=== PATIENT | male | born 1955 | race Caucasian/White ===

== ENCOUNTER 2017-01-15 11:22 | Observation (INO) | payer BC, OTHER ==
[2017-01-15] MEDS ORDERED: Ondansetron 4 MG/2 ML SDV IVPUSH ONE ×2 (11:30→11:48)
[2017-01-15] MEDS ORDERED: Sodium Chloride 0.9% 1,000 ML IV ONE (11:30)
[2017-01-15] MEDS ORDERED: LORazepam 2 MG/ML MDV IVPUSH ONE (11:32)
--- NOTE | 2017-01-15 11:34 | EDM.PDOC ---
ED HPI GENERAL MEDICAL PROBLEM - General Chief Complaint: General Stated Complaint: UNK Time Seen by Provider: 01/15/17 11:25 Source of Information: Reports: Patient, EMS, Family - History of Present Illness INITIAL COMMENTS - FREE TEXT/NARRATIVE: HISTORY AND PHYSICAL: History of present illness: [Patient is brought to the emergency room by EMS who was called to the home by the patient's . She reports that he experienced a syncopal episode. he is vomiting on presentation to the emergency room but he is answering questions and is awake and alert. He states that he developed a migraine headache while sitting in [employer] this morning which is not uncommon for him. He feels that the lights in the orthodox precipitate a migraine headache. He was home sitting at the breakfast table with his after orthodox and he stated that he was not feeling well. The patient tried to stand up but got very dizzy. His tried to help him sit down but they both fell to the floor. reports seizure-like activity while patient was sitting in his chair and saying non-logical words. She denies postictal like symptoms. She states the patient passed out for about one minute.] Review of systems: As per history of present illness and below otherwise all systems reviewed and negative. Past medical history: As per history of present illness and as reviewed below otherwise noncontributory. Surgical history: As per history of present illness and as reviewed below otherwise noncontributory. Social history: No reported history of drug or alcohol abuse. Family history: As per history of present illness and as reviewed below otherwise noncontributory. Physical exam: HEENT: Atraumatic, normocephalic. PERRLA. mucous membranes moist, throat clear, neck supple, nontender, trachea midline. Lungs: Clear to auscultation, breath sounds equal bilaterally, chest nontender. Heart: S1S2, regular rate and rhythm, negative for clicks, rubs, or JVD. Abdomen: Soft, nondistended, nontender. Normoactive bowel sounds Genitourinary: Deferred. Rectal: Deferred. Extremities: Atraumatic, no cyanosis to feet or lower legs. Neurovascular unremarkable. Neuro: Awake, alert, oriented. Cranial nerves II through XII unremarkable. Cerebellum unremarkable. Motor and sensory unremarkable throughout. Exam nonfocal. Diagnostics: [CBC, CMP, prolactin, UA, EKG, chest x-ray, head CT, troponin] Therapeutics: [Zofran 4 mg IV x2, Keppra 1000 mg IV] Impression: [Syncopal episode] Plan: [Patient is much more comfortable and is no longer vomiting after 2 doses of Zofran. Patient's condition remains unchanged while in the ER. Prolactin is elevated at 63. Chest x-ray, EKG and head CT showed no abnormalities or acute findings. Patient's symptoms and lab findings are discussed with Dr. Severino who agrees with admission for observation. Will be placed on telemetry. She requests Keppra 1000 mg be given IV transferred to [facility]. This is discussed with patient and his who are in agreement with today's plan. Patient requesting comfortably on exam table.] Definitive disposition and diagnosis as appropriate pending reevaluation and review of above. Headache Pain Score (Numeric/FACES): 1 - Related Data Allergies Allergy/AdvReac Type Severity Reaction Status Date / Time No Known Allergies Allergy Verified 01/15/17 11:25 Home Meds: Home Meds . [No Known Home Meds] 11/18/15 [History] Past Medical History HEENT History: Reports: Impaired vision Cardiovascular History: Reports: Afib Respiratory History: Reports: None Gastrointestinal History: Reports: None Genitourinary History: Reports: None Musculoskeletal History: Reports: Fracture Neurological History: Reports: Migraines, Vertigo, Other (see below) Other Neuro History: Occular Migraines Psychiatric History: Reports: None Endocrine/Metabolic History: Reports: None Hematologic History: Reports: Other (see below) Other Hematologic History: Previous anticoagulation therapy for history of A- Fib. Immunologic History: Reports: None Oncologic (Cancer) History: Reports: None Dermatologic History: Reports: None - Infectious Disease History Infectious Disease History: Reports: Chicken pox - Past Surgical History HEENT Surgical History: Reports: Oral surgery, Tonsillectomy Social & Family History - Tobacco Use Smoking Status *Q: Never Smoker - Recreational Drug Use Recreational Drug Use: No ED ROS GENERAL - Review of Systems Review Of Systems: ROS reveals no pertinent complaints other than HPI. ED EXAM, GENERAL - Physical Exam Exam: See Below Course - Vital Signs Last Recorded V/S: Last Vital Signs Temp 96.7 F 01/15/17 11:25 Pulse 83 01/15/17 11:25 Resp 20 01/15/17 11:25 BP 137/71 01/15/17 11:25 Pulse Ox 98 01/15/17 11:25 - Orders/Labs/Meds Orders: Active Orders 24 hr Category Date Time Status Patient Status Manage Transfer [TRANSFER] Routine ADT 01/15/17 13:11 Active Patient Status [ADT] Routine ADT 01/15/17 13:13 Active Antiembolic Devices [RC] PER UNIT ROUTINE Care 01/15/17 13:15 Active EKG Documentation Completion [RC] STAT Care 01/15/17 11:30 Active Neuro Check [RC] Q2HR Care 01/15/17 13:18 Active Oxygen Therapy [RC] PRN Care 01/15/17 13:13 Active RT Aerosol Therapy [RC] ASDIRECTED Care 01/15/17 13:15 Active Telemetry Monitoring [Cardiac Monitoring] [RC] . Care 01/15/17 13:21 Active DIRECTED Up ad Alicia [RC] ASDIRECTED Care 01/15/17 13:12 Active VTE/DVT Education [RC] PER UNIT ROUTINE Care 01/15/17 13:13 Active Vital Signs [RC] Q4H Care 01/15/17 13:13 Active 2 Gram Sodium Diet [DIET] Diet 01/15/17 Lunch Active Chest 2V [CR] Stat Exams 01/15/17 11:30 Taken Head wo Cont [CT] Stat Exams 01/15/17 11:44 Taken BASIC METABOLIC PANEL,BMP [CHEM] AM Lab 01/16/17 05:11 Ordered BASIC METABOLIC PANEL,BMP [CHEM] AM Lab 01/17/17 05:11 Ordered BASIC METABOLIC PANEL,BMP [CHEM] AM Lab 01/18/17 05:11 Ordered BASIC METABOLIC PANEL,BMP [CHEM] AM Lab 01/19/17 05:11 Ordered CBC WITH AUTO DIFF [HEME] AM Lab 01/16/17 05:11 Ordered CBC WITH AUTO DIFF [HEME] AM Lab 01/17/17 05:11 Ordered CBC WITH AUTO DIFF [HEME] AM Lab 01/18/17 05:11 Ordered UA W/MICROSCOPIC [URIN] Stat Lab 01/15/17 11:30 Uncollected Albuterol [Proventil Neb Soln] Med 01/15/17 13:12 Active 2.5 mg NEB Q2H PRN Enoxaparin [Lovenox] Med 01/16/17 09:00 Active 40 mg SUBCUT DAILY levETIRAcetam [Keppra] 1,000 mg Med 01/15/17 13:20 Active Dextrose 5% in Water 100 ml IV ONETIME Seizure Precautions [OM.PC] Stat Oth 01/15/17 13:19 Ordered Sequential Compression Device [OM.PC] Per Unit Routine Oth 01/15/17 13:14 Ordered Resuscitation Status Routine Resus Stat 01/15/17 13:12 Ordered Medication Orders Albuterol (Proventil Neb Soln) 2.5 mg NEB Q2H PRN PRN Reason: Shortness Of Breath/wheezing Enoxaparin Sodium (Lovenox) 40 mg SUBCUT DAILY SEGUN Levetiracetam 1,000 mg/ (Dextrose/Water) 110 mls @ 440 mls/hr IV ONETIME ONE Stop: 01/15/17 13:34 Labs: Laboratory Tests 01/15/17 01/15/17 01/15/17 Range/Units 11:40 11:40 11:40 WBC 6.93 (4.0-11.0) K/uL RBC 5.06 (4.50-5.90) M/uL Hgb 15.6 (13.0-17.0) g/dL Hct 43.8 (38.0-50.0) % MCV 86.6 (80.0-98.0) fL MCH 30.8 (27.0-32.0) pg MCHC 35.6 (31.0-37.0) g/dL RDW Std Deviation 41.5 (28.0-62.0) fl RDW Coeff of Haritha 13 (11.0-15.0) % Plt Count 208 (150-400) K/uL MPV 9.70 (7.40-12.00) fL Neut % (Auto) 48.2 (48.0-80.0) % Lymph % (Auto) 40.8 H (16.0-40.0) % Giles % (Auto) 7.9 (0.0-15.0) % Eos % (Auto) 2.5 (0.0-7.0) % Baso % (Auto) 0.6 (0.0-1.5) % Neut # 3.3 (1.4-5.7) K/uL Lymph # 2.8 H (0.6-2.4) K/uL Giles # 0.6 (0.0-0.8) K/uL Eos # 0.2 (0.0-0.7) K/uL Baso # 0.0 (0.0-0.1) K/uL Nucleated RBC % 0.0 /100WBC Nucleated RBCs # 0 K/uL INR 1.12 H (0.86-1.11) Sodium 140 (136-146) mmol/L Potassium 3.8 (3.5-5.1) mmol/L Chloride 107 (98-110) mmol/L Carbon Dioxide 18 L (21-31) mmol/L BUN 16 (6.0-23.0) mg/dL Creatinine 1.2 (0.6-1.5) mg/dL Est Cr Clr Drug Dosing 72.29 mL/min Estimated GFR (MDRD) > 60.0 ml/min Glucose 129 H (60-110) mg/dL Calcium 9.6 (8.8-10.8) mg/dL Total Bilirubin 1.0 (0.1-1.5) mg/dL AST 18 (5-40) IU/L ALT 17 (8-54) IU/L Alkaline Phosphatase 39 L (40-150) Troponin I (0.0-0.29) NG/ML Total Protein 7.3 (6.0-8.0) g/dL Albumin 4.2 (3.5-5.0) g/dL Globulin 3.1 (2.0-3.5) g/dL Albumin/Globulin Ratio 1.4 (1.3-2.8) Prolactin 63 H (1-23) ng/mL 01/15/17 Range/Units 11:40 WBC (4.0-11.0) K/uL RBC (4.50-5.90) M/uL Hgb (13.0-17.0) g/dL Hct (38.0-50.0) % MCV (80.0-98.0) fL MCH (27.0-32.0) pg MCHC (31.0-37.0) g/dL RDW Std Deviation (28.0-62.0) fl RDW Coeff of Haritha (11.0-15.0) % Plt Count (150-400) K/uL MPV (7.40-12.00) fL Neut % (Auto) (48.0-80.0) % Lymph % (Auto) (16.0-40.0) % Giles % (Auto) (0.0-15.0) % Eos % (Auto) (0.0-7.0) % Baso % (Auto) (0.0-1.5) % Neut # (1.4-5.7) K/uL Lymph # (0.6-2.4) K/uL Giles # (0.0-0.8) K/uL Eos # (0.0-0.7) K/uL Baso # (0.0-0.1) K/uL Nucleated RBC % /100WBC Nucleated RBCs # K/uL INR (0.86-1.11) Sodium (136-146) mmol/L Potassium (3.5-5.1) mmol/L Chloride (98-110) mmol/L Carbon Dioxide (21-31) mmol/L BUN (6.0-23.0) mg/dL Creatinine (0.6-1.5) mg/dL Est Cr Clr Drug Dosing mL/min Estimated GFR (MDRD) ml/min Glucose (60-110) mg/dL Calcium (8.8-10.8) mg/dL Total Bilirubin (0.1-1.5) mg/dL AST (5-40) IU/L ALT (8-54) IU/L Alkaline Phosphatase (40-150) Troponin I < 0.10 (0.0-0.29) NG/ML Total Protein (6.0-8.0) g/dL Albumin (3.5-5.0) g/dL Globulin (2.0-3.5) g/dL Albumin/Globulin Ratio (1.3-2.8) Prolactin (1-23) ng/mL Meds: Medications Generic Name Dose Route Start Last Admin Trade Name Freq PRN Reason Stop Dose Admin Albuterol 2.5 mg 01/15/17 13:12 Proventil Neb Soln NEB Q2H PRN Shortness Of Breath/wheezing Enoxaparin Sodium 40 mg 01/16/17 09:00 Lovenox SUBCUT DAILY SEGUN Levetiracetam 1,000 mg/ 110 mls @ 440 mls/hr 01/15/17 13:20 Dextrose/Water IV 01/15/17 13:34 ONETIME ONE Discontinued Medications Generic Name Dose Route Start Last Admin Trade Name Calvin PRN Reason Stop Dose Admin Sodium Chloride 1,000 mls @ 999 mls/hr 01/15/17 11:30 01/15/17 11:22 Normal Saline IV 01/15/17 12:30 999 mls/hr STAT ONE Administration Lorazepam 1 mg 01/15/17 11:32 01/15/17 11:54 Ativan IVPUSH 01/15/17 11:33 1 mg ONETIME ONE Administration Ondansetron HCl 4 mg 01/15/17 11:30 01/15/17 11:30 Zofran IVPUSH 01/15/17 11:31 4 mg ONETIME ONE Administration Ondansetron HCl 4 mg 01/15/17 11:48 01/15/17 11:52 Zofran IVPUSH 01/15/17 11:49 4 mg ONETIME ONE Administration Departure - Departure Time of Disposition: 13:30 Disposition: Refer to Observation Condition: good Clinical Impression: Syncope Qualifiers: Syncope type: unspecified Qualified Code(s): R55 - Syncope and collapse Forms: ED Department Discharge - My Orders Last 24 Hours: My Active Orders 01/15/17 11:30 EKG Documentation Completion [RC] STAT Chest 2V [CR] Stat UA W/MICROSCOPIC [URIN] Stat 01/15/17 11:44 Head wo Cont [CT] Stat 01/15/17 13:11 Patient Status Manage Transfer [TRANSFER] Routine 01/15/17 13:20 levETIRAcetam [Keppra] 1,000 mg Dextrose 5% in Water 100 ml IV ONETIME - Assessment/Plan Last 24 Hours: My Active Orders 01/15/17 11:30 EKG Documentation Completion [RC] STAT Chest 2V [CR] Stat UA W/MICROSCOPIC [URIN] Stat 01/15/17 11:44 Head wo Cont [CT] Stat 01/15/17 13:11 Patient Status Manage Transfer [TRANSFER] Routine 01/15/17 13:20 levETIRAcetam [Keppra] 1,000 mg Dextrose 5% in Water 100 ml IV ONETIME
[2017-01-15 12:08] LABS: CHLORIDE,CL 107 mmol/L (98-110); SODIUM,NA 140 mmol/L (136-146)
[2017-01-15] MEDS ORDERED: Albuterol 0.083% 2.5 MG/3 ML Neb Soln NEB PRN (13:12)
--- NOTE | 2017-01-15 18:02 | PCM.SN ---
- Free Text/Narrative Note: [id number]
[2017-01-15] MEDS: levETIRAcetam 500 MG Tab PO SCH (20:39)
[2017-01-16 06:36] LABS: CHLORIDE,CL 109 mmol/L (98-110); SODIUM,NA 139 mmol/L (136-146)
[2017-01-16] MEDS ORDERED: LORazepam 2 MG/ML MDV IVPUSH PRN (07:40)
--- NOTE | 2017-01-16 07:45 | HP ---
DATE OF : 1955 PRIMARY CARE PHYSICIAN: None PCP HISTORY OF PRESENT ILLNESS: The patient is a 61-year-old, who presented to the emergency room because he was outside the restaurant and he was sitting at [place] with his and he rolled his eyes and he started having seizure-like jerky movements, seizure-like activity for about 2 minutes, LOC, and his held him and laid him on the floor. Prior to this, 1 hour before, he was in [employer] and he had flashing lights in his visual field, and also when I discussed with the patient, he reported aura prior to seizures. He did not have any history of seizures. He has history of migraine headache with aura, and his first migraine was last year in October he says. PAST MEDICAL HISTORY: He has migraine headache, atrial fibrillation, and history of back pain. ALLERGIES: None. PAST SURGICAL HISTORY: He had appendicectomy. SOCIAL HISTORY: He does not smoke. No alcohol use. No drug use. FAMILY HISTORY: Father had rectal cancer at the age of 60 and both parents have Alzheimer disease. REVIEW OF SYSTEMS: A 12-point review of systems is negative except as in history of present illness. PHYSICAL EXAMINATION: VITAL SIGNS: At admission, temperature 96.7, pulse rate 83, blood pressure 137/71, respiratory rate 20, and pulse oximetry 98%. Head : atraumatic , normocephalic , PERRLA NECK :supple , no thyromegaly , no Lymphadenopathy HEART: S1 , S2 , RR , no M Abd : soft ,NT , ND , positive BS EXT: no edema Neurol: AOtimes 3 no gross focal neurologic def CN2-12 grossly intact MS 5/5 throughout Sensations intact finger -nose normal LABORATORY DATA: At admission, WBC 6.9, hemoglobin 15.6, hematocrit 43.9, and platelet count 208. INR 1.12. Sodium 140, potassium 3.8, chloride 107, CO2 of 18, BUN 16, creatinine 1.2, GFR more than 60, glucose 129, and calcium 9.6. Total bilirubin 1, AST 18, ALT 17, alkaline phosphatase 39, total protein 7.3, albumin 4.2, and globulin 3.1. Prolactin 63. Urinalysis had trace ketones, otherwise was negative. CT of the head was done in the emergency room and showed the ventricular system is normal size, there is no mass effect or midline shift, there are no areas of acute ischemia within the brain, there is no hemorrhage, there is no extra-axial fluid collection, and the calvarium is intact. EKG done in the emergency room showed sinus, rate of 63, probable left atrial enlargement, be more than 50 milliseconds, nonspecific intraventricular conduction delay, QRS more than 117 millivolts, no left bundle-branch block, no right bundle-branch block, WA interval 163, QRS 121, QT 426, and QTc 437. ASSESSMENT AND PLAN: New onset [place] seizure. The patient received in the emergency room loading dose of Keppra 1000 mg IV. We will continue the patient with Keppra 500 mg p.o. q.12 hours, and we request Neurology consult tomorrow, and we will order neuro check q.2 hours. We will admit the patient to telemetry, and if the patient has seizure activity we will recommend Ativan 2 mg IV p.r.n. for seizure disorder. For deep venous thrombosis prophylaxis, we will put the patient on heparin subcutaneous. ANTOPET / MODL /[id number]
[2017-01-16] MEDS ORDERED: Enoxaparin 40 MG/0.4 ML Syringe SUBCUT SCH (09:00)
[2017-01-16] MEDS: levETIRAcetam 500 MG Tab PO SCH (09:20)
--- NOTE | 2017-01-16 11:48 | PCM.DCSUM1 ---
<Adenike Reina - Last Filed: 01/16/17 16:22> Discharge Summary - Hospital Course Free Text/Narrative:: 61 yo past medical history of migraines with aura admitted for seizures. Yesterday he was at [employer] and felt he had a migrane, lightheaded, flashes of lights. He sat down and felt better. [facility] his noticed seizure like activity jerky movements, loc x 2 minutes. In the ED he recieved Keppra loading dose. Head CT was negative. He was admitted with continuous telemetry and started on keppra 500 mg PO bid. Echocardiogram and carotid us done today. Dr. coon (neurology) was consulted. She does not feel that this is seizure but a presyncopal episode. She recommended to discontinue keppra, obtain outpatient EEG, Head MRI with and without contrast. He is f/u with PCP, cardiology and neurology. - Discharge Data Discharge Date: 01/16/17 Discharge Disposition: Home, Self-Care 01 Condition: Good - Patient Summary/Data Consults: Consultations 01/16/17 10:41 Consult to Physician [CONS] Routine - Patient Instructions Diet: Regular Diet as Tolerated Activity: As Tolerated Driving: Do Not Drive Showering/Bathing: May Shower Notify Provider of: Fever, Increased Pain, Swelling and Redness, Drainage, Nausea and/or Vomiting Other/Special Instructions: please follow up with Dr. Coon - Discharge Plan Patient Handouts: Syncope, [id number] Referrals: Altaf Hadley MD [Physician] - 02/06/17 9:00 am Clarita Coon MD [Physician] - - General Info Date of Service: 01/16/17 Functional Status: Reports: tolerating diet, ambulating, urinating - Review of Systems General: Reports: no symptoms HEENT: Reports: no symptoms Pulmonary: Reports: no symptoms Cardiovascular: Reports: no symptoms Gastrointestinal: Reports: No symptoms Genitourinary: Reports: no symptoms Musculoskeletal: Reports: no symptoms Skin: Reports: no symptoms Neurological: Reports: no symptoms Psychiatric: Reports: no symptoms - Patient Data Vitals - Most Recent: Last Vital Signs Temp 98.0 F 01/16/17 08:00 Pulse 60 01/16/17 08:00 Resp 16 01/16/17 08:00 BP 112/75 01/16/17 08:00 Pulse Ox 96 01/16/17 08:00 Weight - Most Recent: 172 lb 6.424 oz I&O - Last 24 hours: Intake & Output 01/15/17 01/16/17 01/16/17 22:59 06:59 14:59 Intake Total 0 650 Output Total 0 1700 Balance 0 -1050 Lab Results - Last 24 hrs: Laboratory Results - last 24 hr 01/15/17 01/16/17 01/16/17 Range/Units 17:20 05:53 05:53 WBC 6.65 (4.0-11.0) K/uL RBC 4.80 (4.50-5.90) M/uL Hgb 14.4 (13.0-17.0) g/dL Hct 42.4 (38.0-50.0) % MCV 88.3 (80.0-98.0) fL MCH 30.0 (27.0-32.0) pg MCHC 34.0 (31.0-37.0) g/dL RDW Std Deviation 43.4 (28.0-62.0) fl RDW Coeff of Haritha 13 (11.0-15.0) % Plt Count 194 (150-400) K/uL MPV 9.70 (7.40-12.00) fL Neut % (Auto) 65.8 (48.0-80.0) % Lymph % (Auto) 27.8 (16.0-40.0) % [place] % (Auto) 4.4 (0.0-15.0) % Eos % (Auto) 1.7 (0.0-7.0) % Baso % (Auto) 0.3 (0.0-1.5) % Neut # 4.4 (1.4-5.7) K/uL Lymph # 1.9 (0.6-2.4) K/uL [place] # 0.3 (0.0-0.8) K/uL Eos # 0.1 (0.0-0.7) K/uL Baso # 0.0 (0.0-0.1) K/uL Nucleated RBC % 0.0 /100WBC Nucleated RBCs # 0 K/uL Sodium 139 (136-146) mmol/L Potassium 3.8 (3.5-5.1) mmol/L Chloride 109 (98-110) mmol/L Carbon Dioxide 22 (21-31) mmol/L BUN 11 (6.0-23.0) mg/dL Creatinine 1.0 (0.6-1.5) mg/dL Est Cr Clr Drug Dosing 87.30 mL/min Estimated GFR (MDRD) > 60.0 ml/min Glucose 85 (60-110) mg/dL Calcium 8.8 (8.8-10.8) mg/dL Urine Color YELLOW Urine Appearance CLEAR Urine pH 7.0 (5.0-8.0) Ur Specific [place] 1.020 (1.001-1.035) Urine Protein NEGATIVE (NEGATIVE) mg/dL Urine Glucose (UA) NEGATIVE (NEGATIVE) mg/dL Urine Ketones TRACE H (NEGATIVE) mg/dL Urine Occult Blood NEGATIVE (NEGATIVE) Urine Nitrite NEGATIVE (NEGATIVE) Urine Bilirubin NEGATIVE (NEGATIVE) Urine Urobilinogen 0.2 (<2.0) EU/dL Ur Leukocyte Esterase NEGATIVE (NEGATIVE) Urine RBC 0-1 (0-2/HPF) Urine WBC 0-2 (0-5/HPF) Ur Epithelial Cells RARE (NONE-FEW) Urine Bacteria RARE (NEGATIVE) Urine Mucus LIGHT (NONE-MOD) Med Orders - Current: Current Medications Albuterol (Proventil Neb Soln) 2.5 mg NEB Q2H PRN PRN Reason: Shortness Of Breath/wheezing Enoxaparin Sodium (Lovenox) 40 mg SUBCUT DAILY [facility] Last Admin: 01/16/17 09:20 Dose: 40 mg Levetiracetam (Keppra) 500 mg PO BID [facility] Last Admin: 01/16/17 09:20 Dose: 500 mg Lorazepam (Ativan) 2 mg IVPUSH ASDIRECTED PRN PRN Reason: Seizures Discontinued Medications Sodium Chloride (Normal Saline) 1,000 mls @ 999 mls/hr IV STAT ONE Stop: 01/15/17 12:30 Last Admin: 01/15/17 11:22 Dose: 999 mls/hr Levetiracetam 1,000 mg/ (Dextrose/Water) 110 mls @ 440 mls/hr IV ONETIME ONE Stop: 01/15/17 13:34 Last Admin: 01/15/17 13:30 Dose: 440 mls/hr Lorazepam (Ativan) 1 mg IVPUSH ONETIME ONE Stop: 01/15/17 11:33 Last Admin: 01/15/17 11:54 Dose: 1 mg Ondansetron HCl (Zofran) 4 mg IVPUSH ONETIME ONE Stop: 01/15/17 11:31 Last Admin: 01/15/17 11:30 Dose: 4 mg Ondansetron HCl (Zofran) 4 mg IVPUSH ONETIME ONE Stop: 01/15/17 11:49 Last Admin: 01/15/17 11:52 Dose: 4 mg - Exam General: Reports: alert, oriented, cooperative HEENT: Reports: Pupils equal, EOMI Neck: Reports: supple, trachea midline Lungs: Reports: Clear to auscultation, Normal respiratory effort Cardiovascular: Reports: regular rate, regular rhythm Abdomen: Reports: bowel sounds present, soft, no tenderness, no distension Back Exam: Reports: normal inspection, full range of motion Extremities: Reports: no edema *Q Meaningful Use (DIS) - VTE *Q VTE Criteria *Q: - Stroke *Q Stroke Criteria *Q: - AMI *Q AMI Criteria *Q: <Shakira Severino - Last Filed: 01/16/17 17:20> Discharge Summary - Hospital Course Free Text/Narrative:: Patient was seen and examined and was discussed with resident .I did not discussed with Neurologist , resident discussed with her. Agree with discharge summary with the following corrections: Diagnosis at discharge is LOC DD seizure vs syncope, as seizure is still not ruled out and patient is to have EEG and MRI Discussed this with resident. 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 Patient to f/up Echo results and the carotid doppler with cardiology. Will call patient if abnormal results. - Discharge Diagnosis/Problem(s) (1) Loss of consciousness SNOMED Code(s): 806203640, 800478814 ICD Code: R40.20 - UNSPECIFIED COMA Status: Acute - Patient Summary/Data Consults: Consultations 01/16/17 10:41 Consult to Physician [CONS] Routine - Patient Data Vitals - Most Recent: Last Vital Signs Temp 97.8 F 01/16/17 11:50 Pulse 65 01/16/17 11:50 Resp 16 01/16/17 11:50 BP 119/75 01/16/17 11:50 Pulse Ox 96 01/16/17 11:50 Orthostatic Blood Pressure [ 124/82 Standing] Orthostatic Blood Pressure [ 113/77 Sitting] Orthostatic Blood Pressure [ 114/71 Supine] I&O - Last 24 hours: Intake & Output 01/16/17 01/16/17 01/16/17 06:59 14:59 22:59 Intake Total 650 Output Total 1700 Balance -1050 Lab Results - Last 24 hrs: Laboratory Results - last 24 hr 01/15/17 01/16/17 01/16/17 Range/Units 17:20 05:53 05:53 WBC 6.65 (4.0-11.0) K/uL RBC 4.80 (4.50-5.90) M/uL Hgb 14.4 (13.0-17.0) g/dL Hct 42.4 (38.0-50.0) % MCV 88.3 (80.0-98.0) fL MCH 30.0 (27.0-32.0) pg MCHC 34.0 (31.0-37.0) g/dL RDW Std Deviation 43.4 (28.0-62.0) fl RDW Coeff of Haritha 13 (11.0-15.0) % Plt Count 194 (150-400) K/uL MPV 9.70 (7.40-12.00) fL Neut % (Auto) 65.8 (48.0-80.0) % Lymph % (Auto) 27.8 (16.0-40.0) % [place]ary % (Auto) 4.4 (0.0-15.0) % Eos % (Auto) 1.7 (0.0-7.0) % Baso % (Auto) 0.3 (0.0-1.5) % Neut # 4.4 (1.4-5.7) K/uL Lymph # 1.9 (0.6-2.4) K/uL [place]ary # 0.3 (0.0-0.8) K/uL Eos # 0.1 (0.0-0.7) K/uL Baso # 0.0 (0.0-0.1) K/uL Nucleated RBC % 0.0 /100WBC Nucleated RBCs # 0 K/uL Sodium 139 (136-146) mmol/L Potassium 3.8 (3.5-5.1) mmol/L Chloride 109 (98-110) mmol/L Carbon Dioxide 22 (21-31) mmol/L BUN 11 (6.0-23.0) mg/dL Creatinine 1.0 (0.6-1.5) mg/dL Est Cr Clr Drug Dosing 87.30 mL/min Estimated GFR (MDRD) > 60.0 ml/min Glucose 85 (60-110) mg/dL Calcium 8.8 (8.8-10.8) mg/dL Urine Color YELLOW Urine Appearance CLEAR Urine pH 7.0 (5.0-8.0) Ur Specific [place] 1.020 (1.001-1.035) Urine Protein NEGATIVE (NEGATIVE) mg/dL Urine Glucose (UA) NEGATIVE (NEGATIVE) mg/dL Urine Ketones TRACE H (NEGATIVE) mg/dL Urine Occult Blood NEGATIVE (NEGATIVE) Urine Nitrite NEGATIVE (NEGATIVE) Urine Bilirubin NEGATIVE (NEGATIVE) Urine Urobilinogen 0.2 (<2.0) EU/dL Ur Leukocyte Esterase NEGATIVE (NEGATIVE) Urine RBC 0-1 (0-2/HPF) Urine WBC 0-2 (0-5/HPF) Ur Epithelial Cells RARE (NONE-FEW) Urine Bacteria RARE (NEGATIVE) Urine Mucus LIGHT (NONE-MOD) Med Orders - Current: Current Medications Discontinued Medications Albuterol (Proventil Neb Soln) 2.5 mg NEB Q2H PRN PRN Reason: Shortness Of Breath/wheezing Enoxaparin Sodium (Lovenox) 40 mg SUBCUT DAILY [facility] Last Admin: 01/16/17 09:20 Dose: 40 mg Sodium Chloride (Normal Saline) 1,000 mls @ 999 mls/hr IV STAT ONE Stop: 01/15/17 12:30 Last Admin: 01/15/17 11:22 Dose: 999 mls/hr Levetiracetam 1,000 mg/ (Dextrose/Water) 110 mls @ 440 mls/hr IV ONETIME ONE Stop: 01/15/17 13:34 Last Admin: 01/15/17 13:30 Dose: 440 mls/hr Levetiracetam (Keppra) 500 mg PO BID [facility] Last Admin: 01/16/17 09:20 Dose: 500 mg Lorazepam (Ativan) 1 mg IVPUSH ONETIME ONE Stop: 01/15/17 11:33 Last Admin: 01/15/17 11:54 Dose: 1 mg Lorazepam (Ativan) 2 mg IVPUSH ASDIRECTED PRN PRN Reason: Seizures Ondansetron HCl (Zofran) 4 mg IVPUSH ONETIME ONE Stop: 01/15/17 11:31 Last Admin: 01/15/17 11:30 Dose: 4 mg Ondansetron HCl (Zofran) 4 mg IVPUSH ONETIME ONE Stop: 01/15/17 11:49 Last Admin: 01/15/17 11:52 Dose: 4 mg *Q Meaningful Use (DIS) - VTE *Q VTE Criteria *Q: - Stroke *Q Stroke Criteria *Q: - AMI *Q AMI Criteria *Q:
[2017-01-16 11:52] VITALS: BP 119/75
--- NOTE | 2017-01-16 13:43 | PCM.CONS ---
H&P History of Present Illness - General Date of Service: 01/16/17 - History of Present Illness Initial Comments - Free Text/Narative: This is 61 year-old man with a history of migraines, remote history of atrial fibrillation admitted following an episode of loss of consciousness. Yesterday, he developed a typical migraine while he was in [employer]ikhism. His migraines start with a pressure between the eyes been seeing flashing lights, impaired vision. He then develops a severe bilateral headache associated with photophobia, not typically nausea. They can last from 20 minutes to a couple of hours. He has had about one a month for the last 2 years probably had them as frequently for the last 20 years. Increasing frequency may have been due to increased stress. Yesterday, his migraine spontaneously improved after about 20 minutes while he was in [employer]ikhism but he still had an abnormal feeling. He was sitting on a stool, when he developed feeling of lightheadedness, like he was going to pass out. His and witnessed his eyes roll up and lose consciousness. She tried to hold him up on the chair, but eventually he went down he was speaking nonsense for a minute or 2 when the ambulance came he had nausea and vomiting. When he was in a chair, there may have been some movement, subtle jerking. He felt like he had vertigo in the ambulance on the way to the hospital. He has passed out in the past, but it was over 20 years ago. He notes that he had episodes of age of fibrillation in the 80s were associated with severe palpitations. He had no palpitations with recent episode. He endorses chronic back pain as well as intermittent pain in the base of the skull Headache Pain Score (Numeric/FACES): 2 - Related Data Allergies/Adverse Reactions: Allergies Allergy/AdvReac Type Severity Reaction Status Date / Time No Known Allergies Allergy Verified 01/15/17 11:25 Past Medical History HEENT History: Reports: Impaired vision Cardiovascular History: Reports: Afib Respiratory History: Reports: None Gastrointestinal History: Reports: None Genitourinary History: Reports: None Musculoskeletal History: Reports: Fracture, Osteoarthritis, Other (see below) Other Musculoskeletal History: FX "Collar bone X 6 years ago, leg X 2", chronic pain to back Neurological History: Reports: Migraines, Vertigo, Other (see below) Other Neuro History: Occular Migraines Psychiatric History: Reports: None Endocrine/Metabolic History: Reports: None Hematologic History: Reports: Other (see below) Other Hematologic History: Previous anticoagulation therapy for history of A- Fib. Immunologic History: Reports: None Oncologic (Cancer) History: Reports: None Dermatologic History: Reports: None - Infectious Disease History Infectious Disease History: Reports: Chicken pox, Measles - Past Surgical History Head Surgeries/Procedures: Reports: None HEENT Surgical History: Reports: None, Oral surgery, Tonsillectomy Cardiovascular Surgical History: Reports: None Neurological Surgical History: Reports: None Musculoskeletal Surgical History: Reports: None Social & Family History - Family History Family Medical History: Noncontributory - Tobacco Use Smoking Status *Q: Never Smoker Second Hand Smoke Exposure: No - Caffeine Use Caffeine Use: Reports: Coffee - Recreational Drug Use Recreational Drug Use: No H&P Review of Systems - Review of Systems: Review Of Systems: ROS reveals no pertinent complaints other than HPI. Exam - Exam Exam: See Below - Vital Signs Vital Signs: Last Vital Signs Temp 36.6 C 01/16/17 11:50 Pulse 65 01/16/17 11:50 Resp 16 01/16/17 11:50 BP 119/75 01/16/17 11:50 Pulse Ox 96 01/16/17 11:50 Weight: 78.2 kg - Exam Physical Exam Comments:: Constitutional: No acute distress Psychiatric: Mood/Affect: normal/appropriate Neurological: Mental Status: General: Normal activity, good hygiene, appropriate appearance. Level of consciousness: Awake, alert. Orientation: Oriented to person, place, time and situation. Concentration/Attention Span: Normal. Comprehension/Praxis: Able to perform a three step command. Fund of Knowledge/memory: Adequate recent and remote recall. Language: Fluent and articulate without evidence of aphasia or dysarthria. Thought Content: Normal. Insight/Judgement: Normal. Cranial Nerves: Pupils equally round and reactive to light. Visual butterfield full to confrontation. Gaze conjugate, EOMI. Sensation intact and symmetric to light touch. Facial strength is full and symmetric. Palate elevates symmetrically. Normal shrug bilaterally. Tongue protrudes midline Motor: Normal tone in all groups. No drift. Power is 5/5 throughout proximal and distal muscles. Sensation: Sensation is intact to pinprick, vibratory sense Coordination: Finger to nose, heel to zimmer and rapid alternating movements are intact. Gait: Normal casual gait. Normal tandem HEENT: Eyes: non icteric, Mouth: moist mucus membranes Cardiovascular: RRR Skin: no visible rash - Patient Data Lab Results last 24 hrs: Laboratory Results - last 24 hr 01/15/17 01/16/17 01/16/17 Range/Units 17:20 05:53 05:53 WBC 6.65 (4.0-11.0) K/uL RBC 4.80 (4.50-5.90) M/uL Hgb 14.4 (13.0-17.0) g/dL Hct 42.4 (38.0-50.0) % MCV 88.3 (80.0-98.0) fL MCH 30.0 (27.0-32.0) pg MCHC 34.0 (31.0-37.0) g/dL RDW Std Deviation 43.4 (28.0-62.0) fl RDW Coeff of Haritha 13 (11.0-15.0) % Plt Count 194 (150-400) K/uL MPV 9.70 (7.40-12.00) fL Neut % (Auto) 65.8 (48.0-80.0) % Lymph % (Auto) 27.8 (16.0-40.0) % [place] % (Auto) 4.4 (0.0-15.0) % Eos % (Auto) 1.7 (0.0-7.0) % Baso % (Auto) 0.3 (0.0-1.5) % Neut # 4.4 (1.4-5.7) K/uL Lymph # 1.9 (0.6-2.4) K/uL [place] # 0.3 (0.0-0.8) K/uL Eos # 0.1 (0.0-0.7) K/uL Baso # 0.0 (0.0-0.1) K/uL Nucleated RBC % 0.0 /100WBC Nucleated RBCs # 0 K/uL Sodium 139 (136-146) mmol/L Potassium 3.8 (3.5-5.1) mmol/L Chloride 109 (98-110) mmol/L Carbon Dioxide 22 (21-31) mmol/L BUN 11 (6.0-23.0) mg/dL Creatinine 1.0 (0.6-1.5) mg/dL Est Cr Clr Drug Dosing 87.30 mL/min Estimated GFR (MDRD) > 60.0 ml/min Glucose 85 (60-110) mg/dL Calcium 8.8 (8.8-10.8) mg/dL Urine Color YELLOW Urine Appearance CLEAR Urine pH 7.0 (5.0-8.0) Ur Specific [place] 1.020 (1.001-1.035) Urine Protein NEGATIVE (NEGATIVE) mg/dL Urine Glucose (UA) NEGATIVE (NEGATIVE) mg/dL Urine Ketones TRACE H (NEGATIVE) mg/dL Urine Occult Blood NEGATIVE (NEGATIVE) Urine Nitrite NEGATIVE (NEGATIVE) Urine Bilirubin NEGATIVE (NEGATIVE) Urine Urobilinogen 0.2 (<2.0) EU/dL Ur Leukocyte Esterase NEGATIVE (NEGATIVE) Urine RBC 0-1 (0-2/HPF) Urine WBC 0-2 (0-5/HPF) Ur Epithelial Cells RARE (NONE-FEW) Urine Bacteria RARE (NEGATIVE) Urine Mucus LIGHT (NONE-MOD) Result Diagrams: 01/16/17 05:53 01/16/17 05:53 Imaging Impressions last 24 hrs: CT - no AICP Consult PN Assessment/Plan Procedures: Procedures ASSAY OF FREE THYROXINE (09/28/16) ASSAY OF TROPONIN QUANT (11/18/15) ASSAY THYROID STIM HORMONE (09/28/16) COMPLETE CBC W/AUTO DIFF WBC (09/28/16) COMPREHEN METABOLIC PANEL (09/28/16) CT HEAD/BRAIN W/O DYE (11/18/15) ELECTROCARDIOGRAM TRACING (11/18/15) EMERGENCY DEPT VISIT (11/18/15) GLYCOSYLATED HEMOGLOBIN TEST (09/28/16) HYDRATE IV INFUSION ADD-ON (11/18/15) LIPID PANEL (09/28/16) PROTHROMBIN TIME (11/18/15) ROUTINE VENIPUNCTURE (09/28/16) THER/PROPH/DIAG INJ IV PUSH (11/18/15) TX/PRO/DX INJ NEW DRUG ADDON (11/18/15) Problem List Initiated/Reviewed/Updated: Yes Plan: Is a 61-year-old man with an episode of loss of consciousness preceded by presyncopal symptoms. He had some subtle abnormal movements and confusion, but this may have been secondary to remain upright during syncope. I suspect this is most likely convulsive syncope, but I do recommend an EEG and MRI. I discussed the merits of antiepileptic therapy. At this point, I do not recommend continuing Keppra, but I might recommend restarting it if there is an abnormality on the MRI or EEG. Regarding his migraines, they are not frequent or prolonged enough that I would recommended daily prophylactic therapy, but Imitrex may be considered as an abortive. Summary of recommendations: MRI brain with and without contrast, EEG as an outpatient. Follow with me in clinic after completion of these tests
--- NOTE | 2017-01-16 16:47 | US ---
EXAMINATION: Carotid US with mosqueda scale and duplex imaging. HISTORY: Syncope FINDINGS: Ultrasound examination of bilateral cervical carotid arteries was performed using mosqueda scale and dup bonny imaging. No significant atheromatous plaque identified within the carotid arteries bilaterally. Antegrade flow is noted within the vertebral arteries. These are the peak velocities in cm per second (systole), right and left respectively, by a comma: CCA (common carotid artery) - 78, 139 ICA (internal carotid artery) - 64, 77 ECA (External carotid artery) - 53, 71 ICA/CCA systolic ratio Right - 1.0 Left - less than 1 IMPRESSION: No significant atheromatous disease or elevated velocities identified within the carotid arteries.
--- NOTE | 2017-01-16 18:29 | CT ---
EXAM DATE: 01/15/17 PATIENT'S AGE: 61 Patient: NOEMI SANDOVAL Facility: [place], [place] Site . Site : 1955 Study: CT Head [id number]/5/2017 12:21:15 PM Ordering Physician: Doctor Yañez Final Report: INDICATION: Syncope. Vertigo. Vomiting. Technique: Unenhanced head CT with multiplanar reconstruction. Comparison: Unenhanced head CT 11/18/2015. Findings: The ventricular system is normal in size. There is no mass effect or midline shift. There are no areas of acute ischemia within the brain. There is no hemorrhage. There are no extra-axial fluid collections. The calvarium is intact. Impression: No acute intracranial pathology. Dictated by Tamela Martinez MD @ Jan 15 2017 12:40PM (Electronic Signature) Report Signed by Proxy and Original Signed Document filed in the Medical Record. MEAGAN
--- NOTE | 2017-01-16 18:30 | CR ---
EXAM DATE: 01/15/17 PATIENT'S AGE: 61 Patient: NOEMI SANDOVAL Facility: [place], [place] Site . Site : 1955 Study: XRay Chest [id number]/5/2017 12:21:43 PM Ordering Physician: Doctor Yañez Final Report: INDICATION: Syncope. Vertigo. Vomiting. Technique: Two view chest. Findings: The heart is mildly enlarged. The mediastinum and pulmonary vessels are normal. The lungs are clear. No pleural fluid. No acute bony abnormalities. Impression: Mild cardiomegaly. Dictated by Tamela Martinez MD @ Jan 15 2017 12:44PM (Electronic Signature) Report Signed by Proxy and Original Signed Document filed in the Medical Record. [facility]
--- NOTE | 2017-01-27 22:57 | ECHO ---
The echocardiogram report can be seen in this patient's EMR in the Reports section. MEAGAN
== END 2017-01-16 16:51 | disposition home or self-care (01) ==
LOC: MW.ED 11:22 → MW.MS 13:27
PROVIDERS: ADMIT Internal Medicine; ATTEND Internal Medicine
DX: G40.409 Other generalized epilepsy and epileptic syndromes, not intractable, without status epilepticus (principal); R55 Syncope and collapse; I48.91 Unspecified atrial fibrillation; M19.90 Unspecified osteoarthritis, unspecified site
CPT/HCPCS: 36415; 70450; 71020; 80048; 80053; 81001; 84146; 84484; 85025; 85610; 93005; 93306; 93880; 96361; 96372; 96374; 96375; 99285; A9270; G0378; J1650; J1953; J2060; J2405; J7040; J7060

== ENCOUNTER → 2017-01-23 | Outpatient (CLI) | payer OTHER ==
[~2017-01-23] MED LIST: Gadobutrol 10 mMOL/10 ML SDV IVPUSH STA
--- NOTE | 2017-01-25 14:34 | MR ---
EXAM DATE: 01/23/17 PATIENT'S AGE: 61 Patient: NOEMI SANDOVAL Facility: [place], [place] Site . Site : 1955 Study: MRI Head W/ and W/O Cont [id number]/13/2017 10:11:08 AM Ordering Physician: Nuno Jeong Final Report: Indication: 61-year-old male with dizziness and giddiness. Syncope. Technique: Sagittal T1, axial FLAIR, axial T2, diffusion-weighted, susceptibility weighted and gadolinium enhanced T1 weighted sequences and axial sagittal and coronal planes. Comparison: CT brain dated 01/15/2017. Findings: The ventricles are normal in size and shape with no evidence of acute ischemic infarction or areas of diffusion restriction. No evidence of intracranial hemorrhage no areas of abnormal susceptibility signal. There are several focal and confluent areas of FLAIR and T2 signal hyperintensity within the periventricular and deep supratentorial white matter. These findings are nonspecific but likely due to chronic microvascular ischemia. Differential diagnosis chronic demyelination or sequela of old inflammatory insult is also considered. There are no enhancing intra-axial or extra-axial lesion is the brainstem and cerebellum appear normal. The orbits and sella perinasal sinuses and skull base are unremarkable. Impression: 1. No evidence of acute infarction, intracranial hemorrhage mass or enhancing lesion. 2. Moderate focal and confluent signal abnormalities within the supratentorial white matter. Favor chronic microvascular ischemic changes. Differential considerations of chronic demyelination or sequela of old inflammation. Dictated by Ramsey Saucedo MD @ Jan 23 2017 10:29AM (Electronic Signature) Report Signed by Proxy and Original Signed Document filed in the Medical Record. [facility]
== END ==
LOC: MW.MRI 08:42
PROVIDERS: ATTEND Family Medicine
DX: R42 Dizziness and giddiness (principal); R55 Syncope and collapse
CPT/HCPCS: 70553; A9585

== ENCOUNTER → 2017-01-24 | Outpatient (CLI) | payer OTHER | LOC: MW.RT 06:59 | PROVIDERS: ADMIT Internal Medicine; ATTEND Psychiatry & Neurology Neuromuscular Medicine | DX: R42 Dizziness and giddiness (principal); R55 Syncope and collapse | CPT/HCPCS: 95816 ==

== ENCOUNTER → 2017-03-07 | Outpatient (CLI) | payer OTHER ==
--- NOTE | 2017-03-08 14:37 | CR ---
EXAM DATE: 03/07/17 PATIENT'S AGE: 62 Patient: NOEMI SANDOVAL Facility: [place], [place] Site . Site : 1955 Study: XRay Extremity Right [id number]/25/2017 10:20:06 AM Ordering Physician: Aleah Marin Final Report: Indication: Pain. Technique: Two views. Impression: Moderately severe osteoarthritis 1st carpometacarpal joint with complete joint space loss and subchondral sclerosis and marginal osteophytes and slight radial subluxation. Chronic appearing nonspecific density dorsal to the distal carpal row on the lateral with no correlating finding seen on the PA view. This may be degenerative or remote posttraumatic. No other degenerative or inflammatory change. No acute fracture. Prominent atherosclerosis of radial artery. Dictated by Adrien Mckenna MD @ Mar 08 2017 1:48PM (Electronic Signature) Report Signed by Proxy and Original Signed Document filed in the Medical Record. MEAGAN
--- NOTE | 2017-03-08 14:38 | CR ---
EXAM DATE: 03/07/17 PATIENT'S AGE: 62 Patient: NOEMI SANDOVAL Facility: [place], [place] Site . Site : 1955 Study: XRay Extremity Right [id number]/25/2017 10:21:19 AM Ordering Physician: Aleah Marin Final Report: Indication: Pain. Technique: Two views. Impression: Moderate osteoarthritis 1st carpometacarpal joint. No other degenerative or inflammatory change. No bone lesion or fracture. Dictated by Adrien Mckenna MD @ Mar 08 2017 1:48PM (Electronic Signature) Report Signed by Proxy and Original Signed Document filed in the Medical Record. [facility]
== END ==
LOC: MW.CHFP 09:11
PROVIDERS: ATTEND Family Medicine
DX: M18.11 Unilateral primary osteoarthritis of first carpometacarpal joint, right hand (principal); E78.5 Hyperlipidemia, unspecified; M25.731 Osteophyte, right wrist; M25.831 Other specified joint disorders, right wrist; I70.298 Other atherosclerosis of native arteries of extremities, other extremity
CPT/HCPCS: 36415; 73100-26-RT; 73100-RT; 73120-26-RT; 73120-RT; 80061; 85652; 86038; 86430

== ENCOUNTER 2017-09-08 12:10 | Emergency (ER) | payer OTHER ==
--- NOTE | 2017-09-08 12:28 | EDM.PDOC ---
ED HPI GENERAL MEDICAL PROBLEM - General Chief Complaint: Laceration Stated Complaint: CUT ON FINGER IN RT HAND Time Seen by Provider: 09/08/17 12:20 Source of Information: Reports: Patient History Limitations: Reports: No Limitations - History of Present Illness INITIAL COMMENTS - FREE TEXT/NARRATIVE: History of present illness: [62-year-old male presenting with a acute laceration to the right hand third digit approximately 1 cm over the middle knuckle. 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 Past medical history: As per history of present illness and as reviewed below otherwise noncontributory. Surgical history: As per history of present illness and as reviewed below otherwise noncontributory. Social history: No reported history of drug or alcohol abuse. Family history: As per history of present illness and as reviewed below otherwise noncontributory. Physical exam: HEENT: Laceration of approximately 1/2 cm over the neck: Of the third digit on the right hand, normocephalic, pupils reactive, negative for conjunctival pallor or scleral icterus, mucous membranes moist, throat clear, neck supple, nontender, trachea midline. Lungs: Clear to auscultation, breath sounds equal bilaterally, chest nontender. Heart: S1S2, regular, negative for clicks, rubs, or JVD. Abdomen: Soft, nondistended, nontender. Negative for masses or hepatosplenomegaly. Negative for costovertebral tenderness. Pelvis: Stable nontender. Genitourinary: Deferred. Rectal: Deferred. Extremities: Atraumatic, negative for cords or calf pain. Neurovascular unremarkable. Neuro: Awake, alert, oriented. Cranial nerves II through XII unremarkable. Cerebellum unremarkable. Motor and sensory unremarkable throughout. Exam nonfocal. Hand cleaned in the usual fashion, lidocaine without epi used to obtain local anesthesia. Edges approximated well with 4- 4. 0 Prolene interrupted sutures placed Diagnostics: [X-ray right hand] Therapeutics: [Lidocaine, sutures ] Impression: [Laceration of third digit of right hand a proximally 1 cm] Plan: [Antibiotics follow-up with primary care] Definitive disposition and diagnosis as appropriate pending reevaluation and review of above. Right 3-Middle finger Pain Score (Numeric/FACES): 4 - Related Data Allergies Allergy/AdvReac Type Severity Reaction Status Date / Time No Known Allergies Allergy Verified 09/08/17 12:19 Home Meds: Home Meds Cephalexin [Keflex] 500 mg PO QID #40 capsule 09/08/17 [Rx] Past Medical History HEENT History: Reports: Impaired Vision Cardiovascular History: Reports: Afib Respiratory History: Reports: None Gastrointestinal History: Reports: None Genitourinary History: Reports: None Musculoskeletal History: Reports: Fracture, Osteoarthritis, Other (See Below) Other Musculoskeletal History: FX "Collar bone X 6 years ago, leg X 2", chronic pain to back Neurological History: Reports: Migraines, Vertigo, Other (See Below) Other Neuro History: Occular Migraines Psychiatric History: Reports: None Endocrine/Metabolic History: Reports: None Hematologic History: Reports: Other (See Below) Other Hematologic History: Previous anticoagulation therapy for history of A- Fib. Immunologic History: Reports: None Oncologic (Cancer) History: Reports: None Dermatologic History: Reports: None - Infectious Disease History Infectious Disease History: Reports: Chicken Pox, Measles - Past Surgical History HEENT Surgical History: Reports: None, Oral Surgery, Tonsillectomy Social & Family History - Family History Family Medical History: Noncontributory - Tobacco Use Smoking Status *Q: Never Smoker Second Hand Smoke Exposure: No - Caffeine Use Caffeine Use: Reports: Coffee - Recreational Drug Use Recreational Drug Use: No ED ROS GENERAL - Review of Systems Review Of Systems: See Below (See history of present illness) ED EXAM, SKIN/RASH Exam: See Below (See history of present illness) Course - Vital Signs Last Recorded V/S: Last Vital Signs Temp 36.1 C 09/08/17 12:19 Pulse 70 09/08/17 12:19 Resp 16 09/08/17 12:19 BP 127/108 H 09/08/17 12:19 Pulse Ox 98 09/08/17 12:19 - Orders/Labs/Meds Meds: Medications Discontinued Medications Generic Name Dose Route Start Last Admin Trade Name Freq PRN Reason Stop Dose Admin Lidocaine HCl 20 ml 09/08/17 12:52 09/08/17 13:13 Xylocaine 1% INJECT 09/08/17 12:53 20 ml ONETIME ONE Administration Departure - Departure Time of Disposition: 13:23 Disposition: Home, Self-Care 01 Condition: Good Clinical Impression: Laceration - Discharge Information Prescriptions: Cephalexin [Keflex] 500 mg PO QID #40 capsule Instructions: Stitches, Prateek, or Adhesive Wound Closure, [id number] Referrals: PCP,None [Primary Care Provider] - Forms: ED Department Discharge Additional Instructions: The following information is given to patients seen in the emergency department who are being discharged to home. This information is to outline your options for follow-up care. We provide all patients seen in our emergency department with a follow-up referral. The need for follow-up, as well as the timing and circumstances, are variable depending upon the specifics of your emergency department visit. If you don't have a primary care physician on staff, we will provide you with a referral. We always advise you to contact your personal physician following an emergency department visit to inform them of the circumstance of the visit and for follow-up with them and/or the need for any referrals to a consulting specialist. The emergency department will also refer you to a specialist when appropriate. This referral assures that you have the opportunity for follow-up care with a specialist. All of these measure are taken in an effort to provide you with optimal care, which includes your follow-up. Under all circumstances we always encourage you to contact your private physician who remains a resource for coordinating your care. When calling for follow-up care, please make the office aware that this follow-up is from your recent emergency room visit. If for any reason you are refused follow-up, please contact the [facility] Emergency Department at and asked to speak to the emergency department charge nurse. Take antibiotics as directed Follow-up with PCP 1-2 days Return to ED as needed as discussed
[2017-09-08] MEDS ORDERED: Lidocaine 2% Viscous Solution 15 ML Cup ONE (12:45)
[2017-09-08] MEDS ORDERED: Lidocaine 1% 20 ML MDV INJECT ONE (12:52)
--- NOTE | 2017-09-08 12:56 | CR ---
EXAMINATION: Right hand third digit HISTORY: Laceration COMPARISON: 03/07/2017 TECHNIQUE: 3 views FINDINGS/IMPRESSION: There is soft tissue swelling overlying the distal third phalanx. Osteoarthritic changes are noted within the interphalangeal joints. No acute osseous abnormality.
[2017-09-08 13:30] VITALS: BP 130/92
== END 2017-09-08 13:36 | disposition home or self-care (01) ==
LOC: MW.ED 12:10
DX: S61.212A Laceration without foreign body of right middle finger without damage to nail, initial encounter (principal); W26.8XXA Contact with other sharp object(s), not elsewhere classified, initial encounter
CPT/HCPCS: 12001; 73140-26-F7; 73140-F7; 99281; 99282

== ENCOUNTER 2018-11-19 11:02 | Observation (INO) | payer OTHER ==
[2018-11-19] MEDS ORDERED: Sodium Chloride 0.9% 10 ML Syringe FLUSH PRN (11:19)
[2018-11-19] MEDS ORDERED: Sodium Chloride 0.9% 2.5 ML Syringe FLUSH PRN (11:19)
--- NOTE | 2018-11-19 11:45 | EDM.PDOC ---
ED HPI GENERAL MEDICAL PROBLEM - General Chief Complaint: Cardiovascular Problem Stated Complaint: UNUSUAL HEARTBEAT Time Seen by Provider: 11/19/18 11:05 Source of Information: Reports: Patient History Limitations: Reports: No Limitations - History of Present Illness INITIAL COMMENTS - FREE TEXT/NARRATIVE: History of present illness: []Patient started having some substernal, nonradiating chest pain about 9 PM last night. He slept intermittently through the night but was repeatedly awakened with pain. His pain was 4/10, it is now 1/10 here. He has had some mild shortness of breath and one episode of sweatiness: By chills. He denies any cough or recent illnesses. Review of systems: As per history of present illness and below otherwise all systems reviewed and negative. Past medical history: As per history of present illness and as reviewed below otherwise noncontributory. Surgical history: As per history of present illness and as reviewed below otherwise noncontributory. Social history: No reported history of drug or alcohol abuse. Family history: As per history of present illness and as reviewed below otherwise noncontributory. Physical exam: General: Well developed, well nourished in NAD HEENT: Atraumatic, normocephalic, pupils reactive, negative for conjunctival pallor or scleral icterus, mucous membranes moist, throat clear, neck supple, nontender, trachea midline. Lungs: Clear to auscultation, breath sounds equal bilaterally, chest nontender. Heart: S1S2, regular, negative for clicks, rubs, or JVD. Abdomen: NABS, Soft, nondistended, nontender. Negative for masses or hepatosplenomegaly. Negative for costovertebral tenderness. Pelvis: Stable nontender. Genitourinary: Deferred. Rectal: Deferred. Extremities: Atraumatic, negative for cords or calf pain. Neurovascular unremarkable. Neuro: Awake, alert, oriented. Cranial nerves II through XII unremarkable. Cerebellum unremarkable. Motor and sensory unremarkable throughout. Exam nonfocal. Skin:warm and dry Diagnostics: EKG, chest x-ray, CBC, chemistry, troponin Therapeutics: Aspirin, nitroglycerin ED Course: Unremarkable Impression: Chest pain Prescriptions: None Plan: Admit for observation rule out PR. Definitive disposition and diagnosis as appropriate pending reevaluation and review of above. - Related Data Allergies Allergy/AdvReac Type Severity Reaction Status Date / Time No Known Allergies Allergy Verified 11/19/18 11:14 Home Meds: Home Meds Metoprolol Tartrate [Lopressor] 25 mg PO Q12H #60 tablet 10/29/18 [Rx] Rivaroxaban [Xarelto] 20 mg PO DAILY 30 Days #30 tablet 10/29/18 [Rx] Past Medical History HEENT History: Reports: Impaired Vision Cardiovascular History: Reports: Afib Respiratory History: Reports: None Other Respiratory History: "[place]'s Lung" 20 years ago Gastrointestinal History: Reports: None Genitourinary History: Reports: None Musculoskeletal History: Reports: Fracture, Osteoarthritis, Other (See Below) Other Musculoskeletal History: FX "Collar bone X 6 years ago, leg X 2", chronic pain to back Neurological History: Reports: Migraines, Vertigo, Other (See Below) Other Neuro History: Occular Migraines Psychiatric History: Reports: None Endocrine/Metabolic History: Reports: None Hematologic History: Reports: Other (See Below) Other Hematologic History: Previous anticoagulation therapy for history of A- Fib. Immunologic History: Reports: None Oncologic (Cancer) History: Reports: None Dermatologic History: Reports: None - Infectious Disease History Infectious Disease History: Reports: None - Past Surgical History Head Surgeries/Procedures: Reports: None HEENT Surgical History: Reports: None, Oral Surgery, Tonsillectomy Cardiovascular Surgical History: Reports: None Musculoskeletal Surgical History: Reports: None Social & Family History - Family History Family Medical History: Noncontributory - Tobacco Use Smoking Status *Q: Never Smoker - Caffeine Use Caffeine Use: Reports: None - Recreational Drug Use Recreational Drug Use: No ED ROS GENERAL - Review of Systems Review Of Systems: ROS reveals no pertinent complaints other than HPI. ED EXAM, GENERAL - Physical Exam Exam: See Below (See history of present illness) Course - Vital Signs Last Recorded V/S: Last Vital Signs Temp 96.8 F 11/19/18 14:15 Pulse 58 L 11/19/18 14:15 Resp 16 11/19/18 14:15 BP 121/67 11/19/18 14:15 Pulse Ox 96 11/19/18 14:15 - Orders/Labs/Meds Orders: Active Orders 24 hr Category Date Time Status Cardiac Monitoring [RC] Q8H Care 11/19/18 13:54 Active EKG Documentation Completion [RC] STAT Care 11/19/18 11:19 Active EKG Documentation Completion [RC] STAT Care 11/19/18 13:09 Active Nitroglycerin [Nitrostat] Med 11/19/18 11:20 Active 0.4 mg SL Q5M PRN Sodium Chloride 0.9% [Saline Flush] Med 11/19/18 11:19 Active 10 ml FLUSH ASDIRECTED PRN Sodium Chloride 0.9% [Saline Flush] Med 11/19/18 11:19 Active 2.5 ml FLUSH ASDIRECTED PRN Saline Lock Insert [OM.PC] Stat Oth 11/19/18 11:19 Ordered Medication Orders Acetaminophen (Tylenol) 650 mg PO Q4H PRN PRN Reason: Pain (Mild 1-3)/fever Albuterol/Ipratropium (Duoneb 3.0-0.5 Mg/3 Ml) 3 ml NEB Q4HRRT PRN PRN Reason: Shortness Of Breath/wheezing Bisacodyl (Dulcolax) 5 mg PO DAILY PRN PRN Reason: Constipation Sodium Chloride (Normal Saline) 1,000 mls @ 125 mls/hr IV STAT SEGUN Stop: 11/19/18 21:44 Metoprolol Tartrate (Lopressor) 25 mg PO Q12H SEGUN Morphine Sulfate (Morphine) 2 mg IVPUSH Q2H PRN PRN Reason: Pain (severe 7-10) Stop: 11/20/18 13:29 Nitroglycerin (Nitrostat) 0.4 mg SL Q5M PRN PRN Reason: Chest Pain Last Admin: 11/19/18 13:18 Dose: 0.4 mg Admin: 11/19/18 12:09 Dose: 0.4 mg Nitroglycerin (Nitrostat) 0.4 mg SL Q5M PRN PRN Reason: Chest Pain Omeprazole (Omeprazole) 20 mg PO BEDTIME [facility] Ondansetron HCl (Zofran Odt) 4 mg PO Q4H PRN PRN Reason: nausea, able to take PO Ondansetron HCl (Zofran) 4 mg IVPUSH Q4H PRN PRN Reason: Nausea Polyethylene Glycol (Miralax) 17 gm PO DAILY PRN PRN Reason: Constipation Rivaroxaban (Xarelto) 20 mg PO DAILY@2000 [facility] Sodium Chloride (Saline Flush) 10 ml FLUSH ASDIRECTED PRN PRN Reason: Keep Vein Open Sodium Chloride (Saline Flush) 2.5 ml FLUSH ASDIRECTED PRN PRN Reason: Keep Vein Open Temazepam (Restoril) 15 mg PO BEDTIME PRN PRN Reason: Sleep Labs: Laboratory Tests 11/19/18 11/19/18 11/19/18 Range/Units 11:35 11:35 11:35 WBC 6.55 (4.0-11.0) K/uL RBC 4.88 (4.50-5.90) M/uL Hgb 15.3 (13.0-17.0) g/dL Hct 43.1 (38.0-50.0) % MCV 88.3 (80.0-98.0) fL MCH 31.4 (27.0-32.0) pg MCHC 35.5 (31.0-37.0) g/dL RDW Std Deviation 42.4 (28.0-62.0) fl RDW Coeff of Haritha 13 (11.0-15.0) % Plt Count 212 (150-400) K/uL MPV 9.40 (7.40-12.00) fL Neut % (Auto) 65.3 (48.0-80.0) % Lymph % (Auto) 22.6 (16.0-40.0) % Aurora % (Auto) 10.7 (0.0-15.0) % Eos % (Auto) 1.1 (0.0-7.0) % Baso % (Auto) 0.3 (0.0-1.5) % Neut # (Auto) 4.3 (1.4-5.7) K/uL Lymph # (Auto) 1.5 (0.6-2.4) K/uL Aurora # (Auto) 0.7 (0.0-0.8) K/uL Eos # (Auto) 0.1 (0.0-0.7) K/uL Baso # (Auto) 0.0 (0.0-0.1) K/uL Nucleated RBC % 0.0 /100WBC Nucleated RBCs # 0 K/uL INR 1.17 APTT 30.8 (18.6-31.3) SEC Sodium 138 (136-148) mmol/L Potassium 4.0 (3.5-5.1) mmol/L Chloride 104 (98-107) mmol/L Carbon Dioxide 25.1 (21.0-32.0) mmol/L BUN 15 (7.0-18.0) mg/dL Creatinine 1.1 (0.8-1.3) mg/dL Est Cr Clr Drug Dosing 76.92 mL/min Estimated GFR (MDRD) > 60.0 ml/min Glucose 86 (74-106) mg/dL Calcium 10.1 (8.5-10.1) mg/dL Magnesium (1.8-2.4) mg/dL Total Bilirubin 0.7 (0.2-1.0) mg/dL AST 18 (15-37) IU/L ALT 25 (14-63) IU/L Alkaline Phosphatase 44 L (46-116) U/L Troponin I < 0.050 (0.000-0.056) ng/mL Total Protein 7.8 (6.4-8.2) g/dL Albumin 3.9 (3.4-5.0) g/dL Globulin 3.9 (2.6-4.0) g/dL Albumin/Globulin Ratio 1.0 (0.9-1.6) TSH 3rd Generation (0.36-3.74) uIU/mL 11/19/18 11/19/18 Range/Units 11:35 11:35 WBC (4.0-11.0) K/uL RBC (4.50-5.90) M/uL Hgb (13.0-17.0) g/dL Hct (38.0-50.0) % MCV (80.0-98.0) fL MCH (27.0-32.0) pg MCHC (31.0-37.0) g/dL RDW Std Deviation (28.0-62.0) fl RDW Coeff of Haritha (11.0-15.0) % Plt Count (150-400) K/uL MPV (7.40-12.00) fL Neut % (Auto) (48.0-80.0) % Lymph % (Auto) (16.0-40.0) % Aurora % (Auto) (0.0-15.0) % Eos % (Auto) (0.0-7.0) % Baso % (Auto) (0.0-1.5) % Neut # (Auto) (1.4-5.7) K/uL Lymph # (Auto) (0.6-2.4) K/uL Aurora # (Auto) (0.0-0.8) K/uL Eos # (Auto) (0.0-0.7) K/uL Baso # (Auto) (0.0-0.1) K/uL Nucleated RBC % /100WBC Nucleated RBCs # K/uL INR APTT (18.6-31.3) SEC Sodium (136-148) mmol/L Potassium (3.5-5.1) mmol/L Chloride (98-107) mmol/L Carbon Dioxide (21.0-32.0) mmol/L BUN (7.0-18.0) mg/dL Creatinine (0.8-1.3) mg/dL Est Cr Clr Drug Dosing mL/min Estimated GFR (MDRD) ml/min Glucose (74-106) mg/dL Calcium (8.5-10.1) mg/dL Magnesium 2.2 (1.8-2.4) mg/dL Total Bilirubin (0.2-1.0) mg/dL AST (15-37) IU/L ALT (14-63) IU/L Alkaline Phosphatase (46-116) U/L Troponin I (0.000-0.056) ng/mL Total Protein (6.4-8.2) g/dL Albumin (3.4-5.0) g/dL Globulin (2.6-4.0) g/dL Albumin/Globulin Ratio (0.9-1.6) TSH 3rd Generation 3.52 (0.36-3.74) uIU/mL Meds: Medications Generic Name Dose Route Start Last Admin Trade Name Freq PRN Reason Stop Dose Admin Acetaminophen 650 mg 11/19/18 13:27 Tylenol PO Q4H PRN Pain (Mild 1-3)/fever Albuterol/Ipratropium 3 ml 11/19/18 13:27 Duoneb 3.0-0.5 Mg/3 Ml NEB Q4HRRT PRN Shortness Of Breath/wheezing Bisacodyl 5 mg 11/19/18 13:27 Dulcolax PO DAILY PRN Constipation Sodium Chloride 1,000 mls @ 125 mls/hr 11/19/18 13:45 Normal Saline IV 11/19/18 21:44 STAT SEGUN Metoprolol Tartrate 25 mg 11/19/18 21:00 Lopressor PO Q12H [facility] Morphine Sulfate 2 mg 11/19/18 13:27 Morphine IVPUSH 11/20/18 13:29 Q2H PRN Pain (severe 7-10) Nitroglycerin 0.4 mg 11/19/18 11:20 11/19/18 13:18 Nitrostat SL 0.4 mg Q5M PRN Administration Chest Pain Nitroglycerin 0.4 mg 11/19/18 13:48 Nitrostat SL Q5M PRN Chest Pain Omeprazole 20 mg 11/19/18 21:00 Omeprazole PO BEDTIME [facility] Ondansetron HCl 4 mg 11/19/18 13:27 Zofran Odt PO Q4H PRN nausea, able to take PO Ondansetron HCl 4 mg 11/19/18 13:27 Zofran IVPUSH Q4H PRN Nausea Polyethylene Glycol 17 gm 11/19/18 13:27 Miralax PO DAILY PRN Constipation Rivaroxaban 20 mg 11/19/18 20:00 Xarelto PO DAILY@2000 [facility] Sodium Chloride 10 ml 11/19/18 11:19 Saline Flush FLUSH ASDIRECTED PRN Keep Vein Open Sodium Chloride 2.5 ml 11/19/18 11:19 Saline Flush FLUSH ASDIRECTED PRN Keep Vein Open Temazepam 15 mg 11/19/18 13:27 Restoril PO BEDTIME PRN Sleep Discontinued Medications Generic Name Dose Route Start Last Admin Trade Name Freq PRN Reason Stop Dose Admin Metoprolol Tartrate 25 mg 11/19/18 13:30 Lopressor PO Q12H [facility] Departure - Departure Time of Disposition: 14:00 Disposition: Admitted As Inpatient 68 Condition: Good Clinical Impression: Chest pain Qualifiers: Chest pain type: unspecified Qualified Code(s): R07.9 - Chest pain, unspecified - My Orders Last 24 Hours: My Active Orders 11/19/18 11:19 EKG Documentation Completion [RC] STAT Sodium Chloride 0.9% [Saline Flush] 10 ml FLUSH ASDIRECTED PRN Sodium Chloride 0.9% [Saline Flush] 2.5 ml FLUSH ASDIRECTED PRN Saline Lock Insert [OM.PC] Stat 11/19/18 11:20 Nitroglycerin [Nitrostat] 0.4 mg SL Q5M PRN 11/19/18 13:09 EKG Documentation Completion [RC] STAT 11/19/18 13:54 Cardiac Monitoring [RC] Q8H - Assessment/Plan Last 24 Hours: My Active Orders 11/19/18 11:19 EKG Documentation Completion [RC] STAT Sodium Chloride 0.9% [Saline Flush] 10 ml FLUSH ASDIRECTED PRN Sodium Chloride 0.9% [Saline Flush] 2.5 ml FLUSH ASDIRECTED PRN Saline Lock Insert [OM.PC] Stat 11/19/18 11:20 Nitroglycerin [Nitrostat] 0.4 mg SL Q5M PRN 11/19/18 13:09 EKG Documentation Completion [RC] STAT 11/19/18 13:54 Cardiac Monitoring [RC] Q8H
[2018-11-19] MEDS: Nitroglycerin 0.4 MG Tab.SL SL PRN ×2 (12:09→13:18)
[2018-11-19 12:40] LABS: CHLORIDE,CL 104 mmol/L (98-107); SODIUM,NA 138 mmol/L (136-148)
--- NOTE | 2018-11-19 12:54 | CR ---
EXAMINATION: Portable chest radiograph. HISTORY: Shortness of breath. FINDINGS: The trachea is midline. The cardiomediastinal silhouette is within normal limits. No pulmonary infiltrates, effusions or pneumothorax. Osseous structures appear unremarkable. IMPRESSION: No acute cardiopulmonary process.
[2018-11-19] MEDS ORDERED: Temazepam 15 MG Cap PO PRN (13:27)
[2018-11-19] MEDS ORDERED: Ondansetron 4 MG/2 ML SDV IVPUSH PRN (13:27)
[2018-11-19] MEDS ORDERED: Morphine 10 MG/ML Syringe IVPUSH PRN (13:27)
[2018-11-19] MEDS ORDERED: Polyethylene Glycol 3350 Powder 17 GM Packet PO PRN (13:27)
[2018-11-19] MEDS ORDERED: Bisacodyl 5 MG Tab PO PRN (13:27)
[2018-11-19] MEDS ORDERED: Albuterol/Ipratropium 3.0-0.5 MG/3 ML Neb Soln NEB PRN (13:27)
[2018-11-19] MEDS ORDERED: Acetaminophen 325 MG Tab PO PRN (13:27)
[2018-11-19] MEDS ORDERED: Ondansetron 4 MG Tab.DIS PO PRN (13:27)
[2018-11-19] MEDS ORDERED: Metoprolol Tartrate 25 MG Tab PO SCH (13:30)
[2018-11-19] MEDS ORDERED: Sodium Chloride 0.9% 1,000 ML IV SCH (13:45)
--- NOTE | 2018-11-19 13:45 | PCM.HP ---
<Jos Fredis Cedillo - Last Filed: 11/19/18 13:54> H&P History of Present Illness - General Date of Service: 11/19/18 Admit Problem/Dx: Admission Diagnosis/Problem Admission Diagnosis/Problem Chest pain - History of Present Illness Initial Comments - Free Text/Narative: Peter Souza is a 63 y/o male with history of Afib on Xarelto who presented to the ED with worsening left sided chest pain. Patient states that yesterday he only drank 1 bottle of water during the day and another glass in the evening for dinner. Around 8pm he started feeling lightheaded and short of breath. He had to sit down. He then went to bed, however, he was still lightheaded this morning and decided to come to the hospital. Denies any palpitations. He does endorse feeling lightheaded, sweaty. No nausea or vomiting. No abdominal pain, dysuria or diarrhea. Today in the ED he was rate controlled. He was given 2 nitroglycerin which seemed to help his chest pain. Initial troponin was negative. - Related Data Allergies/Adverse Reactions: Allergies Allergy/AdvReac Type Severity Reaction Status Date / Time No Known Allergies Allergy Verified 11/19/18 11:14 Home Medications: Home Meds Metoprolol Tartrate [Lopressor] 25 mg PO Q12H #60 tablet 10/29/18 [Rx] Rivaroxaban [Xarelto] 20 mg PO DAILY 30 Days #30 tablet 10/29/18 [Rx] Past Medical History HEENT History: Reports: Impaired Vision Cardiovascular History: Reports: Afib Respiratory History: Reports: None Other Respiratory History: "[place] [facility]" 20 years ago Gastrointestinal History: Reports: None Genitourinary History: Reports: None Musculoskeletal History: Reports: Fracture, Osteoarthritis, Other (See Below) Other Musculoskeletal History: FX "Collar bone X 6 years ago, leg X 2", chronic pain to back Neurological History: Reports: Migraines, Vertigo, Other (See Below) Other Neuro History: Occular Migraines Psychiatric History: Reports: None Endocrine/Metabolic History: Reports: None Hematologic History: Reports: Other (See Below) Other Hematologic History: Previous anticoagulation therapy for history of A- Fib. Immunologic History: Reports: None Oncologic (Cancer) History: Reports: None Dermatologic History: Reports: None - Infectious Disease History Infectious Disease History: Reports: None - Past Surgical History Head Surgeries/Procedures: Reports: None HEENT Surgical History: Reports: None, Oral Surgery, Tonsillectomy Cardiovascular Surgical History: Reports: None Musculoskeletal Surgical History: Reports: None Social & Family History - Family History Family Medical History: Noncontributory - Tobacco Use Smoking Status *Q: Never Smoker - Caffeine Use Caffeine Use: Reports: None - Recreational Drug Use Recreational Drug Use: No H&P Review of Systems - Review of Systems: Review Of Systems: ROS reveals no pertinent complaints other than HPI. Exam - Exam Exam: See Below - Vital Signs Vital Signs: Last Vital Signs Temp 36.2 C 11/19/18 11:15 Pulse 54 L 11/19/18 13:17 Resp 15 11/19/18 13:17 BP 118/70 11/19/18 13:29 Pulse Ox 97 11/19/18 13:17 Weight: 77.111 kg - Exam General: Alert, Oriented, Cooperative HEENT: Other (dry oral mucosa) Lungs: Clear to Auscultation, Normal Respiratory Effort Cardiovascular: Regular Rate, Irregular Rhythm GI/Abdominal Exam: Normal Bowel Sounds, Soft, Non-Tender, No Distention Extremities: Normal Inspection, No Pedal Edema Skin: Warm, Dry Neurological: Cranial Nerves Intact Neuro Extensive - Mental Status: Alert, Oriented x3 - Patient Data Lab Results Last 24 hrs: Laboratory Results - last 24 hr 11/19/18 11/19/18 11/19/18 Range/Units 11:35 11:35 11:35 WBC 6.55 (4.0-11.0) K/uL RBC 4.88 (4.50-5.90) M/uL Hgb 15.3 (13.0-17.0) g/dL Hct 43.1 (38.0-50.0) % MCV 88.3 (80.0-98.0) fL MCH 31.4 (27.0-32.0) pg MCHC 35.5 (31.0-37.0) g/dL RDW Std Deviation 42.4 (28.0-62.0) fl RDW Coeff of Haritha 13 (11.0-15.0) % Plt Count 212 (150-400) K/uL MPV 9.40 (7.40-12.00) fL Neut % (Auto) 65.3 (48.0-80.0) % Lymph % (Auto) 22.6 (16.0-40.0) % [place] % (Auto) 10.7 (0.0-15.0) % Eos % (Auto) 1.1 (0.0-7.0) % Baso % (Auto) 0.3 (0.0-1.5) % Neut # (Auto) 4.3 (1.4-5.7) K/uL Lymph # (Auto) 1.5 (0.6-2.4) K/uL [place] # (Auto) 0.7 (0.0-0.8) K/uL Eos # (Auto) 0.1 (0.0-0.7) K/uL Baso # (Auto) 0.0 (0.0-0.1) K/uL Nucleated RBC % 0.0 /100WBC Nucleated RBCs # 0 K/uL INR 1.17 APTT 30.8 (18.6-31.3) SEC Sodium 138 (136-148) mmol/L Potassium 4.0 (3.5-5.1) mmol/L Chloride 104 (98-107) mmol/L Carbon Dioxide 25.1 (21.0-32.0) mmol/L BUN 15 (7.0-18.0) mg/dL Creatinine 1.1 (0.8-1.3) mg/dL Est Cr Clr Drug Dosing 76.92 mL/min Estimated GFR (MDRD) > 60.0 ml/min Glucose 86 (74-106) mg/dL Calcium 10.1 (8.5-10.1) mg/dL Total Bilirubin 0.7 (0.2-1.0) mg/dL AST 18 (15-37) IU/L ALT 25 (14-63) IU/L Alkaline Phosphatase 44 L (46-116) U/L Troponin I < 0.050 (0.000-0.056) ng/mL Total Protein 7.8 (6.4-8.2) g/dL Albumin 3.9 (3.4-5.0) g/dL Globulin 3.9 (2.6-4.0) g/dL Albumin/Globulin Ratio 1.0 (0.9-1.6) Result Diagrams: 11/19/18 11:35 11/19/18 11:35 Problem List Initiated/Reviewed/Updated: Yes Orders Last 24hrs: Active Orders 24 hr Category Date Time Status Patient Status [ADT] Routine ADT 11/19/18 13:27 Ordered Bedrest Bathroom Privileges [RC] ASDIRECTED Care 11/19/18 13:27 Ordered Cardiac Monitoring [RC] . DIRECTED Care 11/19/18 11:19 Active EKG Documentation Completion [RC] STAT Care 11/19/18 11:19 Active EKG Documentation Completion [RC] STAT Care 11/19/18 13:09 Active Oxygen Therapy [RC] PRN Care 11/19/18 13:27 Ordered RT Aerosol Therapy [RC] ASDIRECTED Care 11/19/18 13:29 Ordered VTE/DVT Education [RC] PER UNIT ROUTINE Care 11/19/18 13:27 Ordered Vital Signs [RC] Q4H Care 11/19/18 13:27 Ordered Heart Healthy Diet [DIET] Diet 11/19/18 Dinner Ordered COMPREHENSIVE METABOLIC PN,CMP [CHEM] AM Lab 11/20/18 05:11 Ordered MAGNESIUM [CHEM] Stat Lab 11/19/18 13:31 Ordered TROPONIN I [CHEM] Q6H Lab 11/19/18 18:00 Ordered TROPONIN I [CHEM] Q6H Lab 11/20/18 00:00 Ordered Acetaminophen [Tylenol] Med 11/19/18 13:27 Ordered 650 mg PO Q4H PRN Albuterol/Ipratropium [DuoNeb 3.0-0.5 MG/3 ML] Med 11/19/18 13:27 Ordered 3 ml NEB Q4HRRT PRN Bisacodyl [Dulcolax] Med 11/19/18 13:27 Ordered 5 mg PO DAILY PRN Metoprolol Tartrate [Lopressor] Med 11/19/18 13:30 Ordered 25 mg PO Q12H Morphine Med 11/19/18 13:27 Ordered 2 mg IVPUSH Q2H PRN Nitroglycerin [Nitrostat] Med 11/19/18 11:20 Active 0.4 mg SL Q5M PRN Omeprazole Med 11/19/18 21:00 Ordered 20 mg PO BEDTIME Ondansetron [Zofran ODT] Med 11/19/18 13:27 Ordered 4 mg PO Q4H PRN Ondansetron [Zofran] Med 11/19/18 13:27 Ordered 4 mg IVPUSH Q4H PRN Polyethylene Glycol 3350 [MiraLAX] Med 11/19/18 13:27 Ordered 17 gm PO DAILY PRN Rivaroxaban [Xarelto] Med 11/20/18 09:00 Ordered 20 mg PO DAILY Sodium Chloride 0.9% [Normal Saline] 1,000 ml Med 11/19/18 13:45 Ordered IV STAT Sodium Chloride 0.9% [Saline Flush] Med 11/19/18 11:19 Active 10 ml FLUSH ASDIRECTED PRN Sodium Chloride 0.9% [Saline Flush] Med 11/19/18 11:19 Active 2.5 ml FLUSH ASDIRECTED PRN Temazepam [Restoril] Med 11/19/18 13:27 Ordered 15 mg PO BEDTIME PRN Saline Lock Insert [OM.PC] Stat Oth 11/19/18 11:19 Ordered Resuscitation Status Routine Resus Stat 11/19/18 13:27 Ordered Medication Orders Acetaminophen (Tylenol) 650 mg PO Q4H PRN PRN Reason: Pain (Mild 1-3)/fever Albuterol/Ipratropium (Duoneb 3.0-0.5 Mg/3 Ml) 3 ml NEB Q4HRRT PRN PRN Reason: Shortness Of Breath/wheezing Bisacodyl (Dulcolax) 5 mg PO DAILY PRN PRN Reason: Constipation Sodium Chloride (Normal Saline) 1,000 mls @ 125 mls/hr IV STAT SEGUN Stop: 11/19/18 21:44 Metoprolol Tartrate (Lopressor) 25 mg PO Q12H SEGUN Morphine Sulfate (Morphine) 2 mg IVPUSH Q2H PRN PRN Reason: Pain (severe 7-10) Stop: 11/20/18 13:29 Nitroglycerin (Nitrostat) 0.4 mg SL Q5M PRN PRN Reason: Chest Pain Last Admin: 11/19/18 13:18 Dose: 0.4 mg Admin: 11/19/18 12:09 Dose: 0.4 mg Non-Formulary Medication (Rivaroxaban [Xarelto]) 20 mg PO DAILY SEGUN Omeprazole (Omeprazole) 20 mg PO BEDTIME SEGUN Ondansetron HCl (Zofran Odt) 4 mg PO Q4H PRN PRN Reason: nausea, able to take PO Ondansetron HCl (Zofran) 4 mg IVPUSH Q4H PRN PRN Reason: Nausea Polyethylene Glycol (Miralax) 17 gm PO DAILY PRN PRN Reason: Constipation Sodium Chloride (Saline Flush) 10 ml FLUSH ASDIRECTED PRN PRN Reason: Keep Vein Open Sodium Chloride (Saline Flush) 2.5 ml FLUSH ASDIRECTED PRN PRN Reason: Keep Vein Open Temazepam (Restoril) 15 mg PO BEDTIME PRN PRN Reason: Sleep Assessment/Plan Comment:: A: 1. Chest pain, r/o ACS 2. Afib, rate controlled on Xarelto P: 1. Admit as observation to the medical floor. 2. Vitals, I/O per floor routine. Telemetry. 3. Activity: bedrest with bathroom privileges 4. Diet: cardiac 5. DVT: on Xarelto 6. Code status: FULL CODE 1. Chest pain. I suspect that he may have had an episode of tachycardia on top of being dehydrated. Will trend troponins. Telemetry. 2. Afib, rate controlled. Continue Xarelto and metoprolol. Dispo: 1-2 days <Ramsey Cali - Last Filed: 11/19/18 14:44> H&P History of Present Illness - General Admit Problem/Dx: Admission Diagnosis/Problem Admission Diagnosis/Problem Chest pain I have examined the patient independently of medical dir. I have discussed the case with him. I agree with the assessment and plan of care outlined for this patient. Please see orders. Dr. Arguello is this patients PCP and he was discharged 10/29/2018. Exam - Vital Signs Vital Signs: Last Vital Signs Temp 36.2 C 11/19/18 11:15 Pulse 54 L 11/19/18 13:17 Resp 15 11/19/18 13:17 BP 118/70 11/19/18 13:29 Pulse Ox 97 11/19/18 13:17 - Patient Data Lab Results Last 24 hrs: Laboratory Results - last 24 hr 11/19/18 11/19/18 11/19/18 Range/Units 11:35 11:35 11:35 WBC 6.55 (4.0-11.0) K/uL RBC 4.88 (4.50-5.90) M/uL Hgb 15.3 (13.0-17.0) g/dL Hct 43.1 (38.0-50.0) % MCV 88.3 (80.0-98.0) fL MCH 31.4 (27.0-32.0) pg MCHC 35.5 (31.0-37.0) g/dL RDW Std Deviation 42.4 (28.0-62.0) fl RDW Coeff of Haritha 13 (11.0-15.0) % Plt Count 212 (150-400) K/uL MPV 9.40 (7.40-12.00) fL Neut % (Auto) 65.3 (48.0-80.0) % Lymph % (Auto) 22.6 (16.0-40.0) % [place] % (Auto) 10.7 (0.0-15.0) % Eos % (Auto) 1.1 (0.0-7.0) % Baso % (Auto) 0.3 (0.0-1.5) % Neut # (Auto) 4.3 (1.4-5.7) K/uL Lymph # (Auto) 1.5 (0.6-2.4) K/uL [place] # (Auto) 0.7 (0.0-0.8) K/uL Eos # (Auto) 0.1 (0.0-0.7) K/uL Baso # (Auto) 0.0 (0.0-0.1) K/uL Nucleated RBC % 0.0 /100WBC Nucleated RBCs # 0 K/uL INR 1.17 APTT 30.8 (18.6-31.3) SEC Sodium 138 (136-148) mmol/L Potassium 4.0 (3.5-5.1) mmol/L Chloride 104 (98-107) mmol/L Carbon Dioxide 25.1 (21.0-32.0) mmol/L BUN 15 (7.0-18.0) mg/dL Creatinine 1.1 (0.8-1.3) mg/dL Est Cr Clr Drug Dosing 76.92 mL/min Estimated GFR (MDRD) > 60.0 ml/min Glucose 86 (74-106) mg/dL Calcium 10.1 (8.5-10.1) mg/dL Magnesium (1.8-2.4) mg/dL Total Bilirubin 0.7 (0.2-1.0) mg/dL AST 18 (15-37) IU/L ALT 25 (14-63) IU/L Alkaline Phosphatase 44 L (46-116) U/L Troponin I < 0.050 (0.000-0.056) ng/mL Total Protein 7.8 (6.4-8.2) g/dL Albumin 3.9 (3.4-5.0) g/dL Globulin 3.9 (2.6-4.0) g/dL Albumin/Globulin Ratio 1.0 (0.9-1.6) TSH 3rd Generation (0.36-3.74) uIU/mL 11/19/18 11/19/18 Range/Units 11:35 11:35 WBC (4.0-11.0) K/uL RBC (4.50-5.90) M/uL Hgb (13.0-17.0) g/dL Hct (38.0-50.0) % MCV (80.0-98.0) fL MCH (27.0-32.0) pg MCHC (31.0-37.0) g/dL RDW Std Deviation (28.0-62.0) fl RDW Coeff of Haritha (11.0-15.0) % Plt Count (150-400) K/uL MPV (7.40-12.00) fL Neut % (Auto) (48.0-80.0) % Lymph % (Auto) (16.0-40.0) % [place] % (Auto) (0.0-15.0) % Eos % (Auto) (0.0-7.0) % Baso % (Auto) (0.0-1.5) % Neut # (Auto) (1.4-5.7) K/uL Lymph # (Auto) (0.6-2.4) K/uL [place] # (Auto) (0.0-0.8) K/uL Eos # (Auto) (0.0-0.7) K/uL Baso # (Auto) (0.0-0.1) K/uL Nucleated RBC % /100WBC Nucleated RBCs # K/uL INR APTT (18.6-31.3) SEC Sodium (136-148) mmol/L Potassium (3.5-5.1) mmol/L Chloride (98-107) mmol/L Carbon Dioxide (21.0-32.0) mmol/L BUN (7.0-18.0) mg/dL Creatinine (0.8-1.3) mg/dL Est Cr Clr Drug Dosing mL/min Estimated GFR (MDRD) ml/min Glucose (74-106) mg/dL Calcium (8.5-10.1) mg/dL Magnesium 2.2 (1.8-2.4) mg/dL Total Bilirubin (0.2-1.0) mg/dL AST (15-37) IU/L ALT (14-63) IU/L Alkaline Phosphatase (46-116) U/L Troponin I (0.000-0.056) ng/mL Total Protein (6.4-8.2) g/dL Albumin (3.4-5.0) g/dL Globulin (2.6-4.0) g/dL Albumin/Globulin Ratio (0.9-1.6) TSH 3rd Generation 3.52 (0.36-3.74) uIU/mL Result Diagrams: 11/19/18 11:35 11/19/18 11:35 Orders Last 24hrs: Active Orders 24 hr Category Date Time Status Patient Status [ADT] Routine ADT 11/19/18 13:27 Active Bedrest Bathroom Privileges [RC] ASDIRECTED Care 11/19/18 13:27 Active Cardiac Monitoring [RC] . DIRECTED Care 11/19/18 11:19 Active EKG Documentation Completion [RC] STAT Care 11/19/18 11:19 Active EKG Documentation Completion [RC] STAT Care 11/19/18 13:09 Active Oxygen Therapy [RC] PRN Care 11/19/18 13:27 Active RT Aerosol Therapy [RC] ASDIRECTED Care 11/19/18 13:29 Active VTE/DVT Education [RC] PER UNIT ROUTINE Care 11/19/18 13:27 Active Vital Signs [RC] Q4H Care 11/19/18 13:27 Active Heart Healthy Diet [DIET] Diet 11/19/18 Dinner Active COMPREHENSIVE METABOLIC PN,CMP [CHEM] AM Lab 11/20/18 05:11 Ordered TROPONIN I [CHEM] Q6H Lab 11/19/18 18:00 Ordered TROPONIN I [CHEM] Q6H Lab 11/20/18 00:00 Ordered Acetaminophen [Tylenol] Med 11/19/18 13:27 Active 650 mg PO Q4H PRN Albuterol/Ipratropium [DuoNeb 3.0-0.5 MG/3 ML] Med 11/19/18 13:27 Active 3 ml NEB Q4HRRT PRN Bisacodyl [Dulcolax] Med 11/19/18 13:27 Active 5 mg PO DAILY PRN Metoprolol Tartrate [Lopressor] Med 11/19/18 13:30 Active 25 mg PO Q12H Morphine Med 11/19/18 13:27 Active 2 mg IVPUSH Q2H PRN Nitroglycerin [Nitrostat] Med 11/19/18 11:20 Active 0.4 mg SL Q5M PRN Nitroglycerin [Nitrostat] Med 11/19/18 13:48 Active 0.4 mg SL Q5M PRN Omeprazole Med 11/19/18 21:00 Active 20 mg PO BEDTIME Ondansetron [Zofran ODT] Med 11/19/18 13:27 Active 4 mg PO Q4H PRN Ondansetron [Zofran] Med 11/19/18 13:27 Active 4 mg IVPUSH Q4H PRN Polyethylene Glycol 3350 [MiraLAX] Med 11/19/18 13:27 Active 17 gm PO DAILY PRN Rivaroxaban [Xarelto] Med 11/20/18 09:00 Active 20 mg PO DAILY Sodium Chloride 0.9% [Normal Saline] 1,000 ml Med 11/19/18 13:45 Active IV STAT Sodium Chloride 0.9% [Saline Flush] Med 11/19/18 11:19 Active 10 ml FLUSH ASDIRECTED PRN Sodium Chloride 0.9% [Saline Flush] Med 11/19/18 11:19 Active 2.5 ml FLUSH ASDIRECTED PRN Temazepam [Restoril] Med 11/19/18 13:27 Active 15 mg PO BEDTIME PRN Saline Lock Insert [OM.PC] Stat Oth 11/19/18 11:19 Ordered Resuscitation Status Routine Resus Stat 11/19/18 13:27 Ordered Medication Orders Acetaminophen (Tylenol) 650 mg PO Q4H PRN PRN Reason: Pain (Mild 1-3)/fever Albuterol/Ipratropium (Duoneb 3.0-0.5 Mg/3 Ml) 3 ml NEB Q4HRRT PRN PRN Reason: Shortness Of Breath/wheezing Bisacodyl (Dulcolax) 5 mg PO DAILY PRN PRN Reason: Constipation Sodium Chloride (Normal Saline) 1,000 mls @ 125 mls/hr IV STAT SEGUN Stop: 11/19/18 21:44 Metoprolol Tartrate (Lopressor) 25 mg PO Q12H SEGUN Morphine Sulfate (Morphine) 2 mg IVPUSH Q2H PRN PRN Reason: Pain (severe 7-10) Stop: 11/20/18 13:29 Nitroglycerin (Nitrostat) 0.4 mg SL Q5M PRN PRN Reason: Chest Pain Last Admin: 11/19/18 13:18 Dose: 0.4 mg Admin: 11/19/18 12:09 Dose: 0.4 mg Nitroglycerin (Nitrostat) 0.4 mg SL Q5M PRN PRN Reason: Chest Pain Non-Formulary Medication (Rivaroxaban [Xarelto]) 20 mg PO DAILY [facility] Omeprazole (Omeprazole) 20 mg PO BEDTIME SEGUN Ondansetron HCl (Zofran Odt) 4 mg PO Q4H PRN PRN Reason: nausea, able to take PO Ondansetron HCl (Zofran) 4 mg IVPUSH Q4H PRN PRN Reason: Nausea Polyethylene Glycol (Miralax) 17 gm PO DAILY PRN PRN Reason: Constipation Sodium Chloride (Saline Flush) 10 ml FLUSH ASDIRECTED PRN PRN Reason: Keep Vein Open Sodium Chloride (Saline Flush) 2.5 ml FLUSH ASDIRECTED PRN PRN Reason: Keep Vein Open Temazepam (Restoril) 15 mg PO BEDTIME PRN PRN Reason: Sleep
[2018-11-19] MEDS ORDERED: Nitroglycerin 0.4 MG Tab.SL SL PRN (13:48)
[2018-11-19] MEDS ORDERED: Rivaroxaban 10 MG Tab PO SCH (20:00)
[2018-11-19] MEDS: Metoprolol Tartrate 25 MG Tab PO SCH (21:05)
[2018-11-19] MEDS: Omeprazole 20 MG Cap.CR PO SCH ×2 (21:05→21:10)
[2018-11-20 06:16] LABS: CHLORIDE,CL 107 mmol/L (98-107); SODIUM,NA 139 mmol/L (136-148)
--- NOTE | 2018-11-20 06:55 | PCM.DCSUM1 ---
Discharge Summary - Hospital Course Free Text/Narrative:: Admitted for chest pain Diagnosis: Stroke: No - Discharge Data Discharge Date: 11/20/18 Discharge Disposition: Home, Self-Care 01 Condition: Good - Discharge Diagnosis/Problem(s) (1) Chest pain SNOMED Code(s): 21255648 ICD Code: R07.9 - CHEST PAIN, UNSPECIFIED Status: Resolved Priority: High Current Visit: Yes Qualifiers: Chest pain type: other chest pain Qualified Code(s): R07.89 - Other chest pain; R07.8 - Other chest pain (2) Atrial fibrillation SNOMED Code(s): 03050056 ICD Code: I48.91 - UNSPECIFIED ATRIAL FIBRILLATION Status: Chronic Priority: Medium Current Visit: Yes Qualifiers: Atrial fibrillation type: paroxysmal Qualified Code(s): I48.0 - Paroxysmal atrial fibrillation - Patient Summary/Data Hospital Course: The patient is a 63-year-old gentleman who was admitted yesterday secondary to chest pain. Patient had presented to the emergency department with worsening left-sided chest pain. He has a known cardiac history and was discharged from acute hospitalization with Nel gorman with RVR on October 29, 2018. The patient is currently taking Xarelto for anticoagulation. The patient's stated that if it started after drinking water. The patient was admitted to observation and kept on telemetry. Upon admission the patient had a completely normal CBC along with a metabolic panel which was also normal. The patient did have 3 sets of troponins that were essentially undetectable. On telemetry there were no overnight events. The patient has been recommended to follow up as scheduled with his primary care physician as well as cardiology. The patient has been tolerating his diet. He is also recommended to continue with a heart healthy diet as tolerated. Further, the patient should have his activity as tolerated. The patient has been hemodynamically stable and he is discharged from hospitalization with recommendations listed above. - Patient Instructions Diet: Heart Healthy Diet Activity: As Tolerated - Discharge Plan *PRESCRIPTION DRUG MONITORING PROGRAM REVIEWED*: No *COPY OF PRESCRIPTION DRUG MONITORING REPORT IN PATIENT DONALD: No Home Medications: Home Meds Metoprolol Tartrate [Lopressor] 25 mg PO Q12H #60 tablet 10/29/18 [Rx] Rivaroxaban [Xarelto] 20 mg PO DAILY 30 Days #30 tablet 10/29/18 [Rx] Oxygen Therapy Mode: Room Air Patient Handouts: Chest Wall Pain, [id number] Forms: ED Department Discharge Referrals: Fredis Platt MD [Resident] - PCP,None [Primary Care Provider] - - Discharge Summary/Plan Comment DC Time >30 min.: Yes - General Info Date of Service: 11/20/18 Admission Dx/Problem (Free Text: Admission Diagnosis/Problem Admission Diagnosis/Problem Chest pain, Afib, controlled Functional Status: Reports: Pain Controlled, Tolerating Diet - Review of Systems General: Reports: No Symptoms HEENT: Reports: No Symptoms Pulmonary: Reports: No Symptoms Cardiovascular: Reports: No Symptoms Gastrointestinal: Reports: No Symptoms Genitourinary: Reports: No Symptoms Musculoskeletal: Reports: No Symptoms Skin: Reports: No Symptoms Neurological: Reports: No Symptoms Psychiatric: Reports: No Symptoms - Patient Data Vitals - Most Recent: Last Vital Signs Temp 35.8 C 11/20/18 03:00 Pulse 60 11/20/18 03:00 Resp 17 11/20/18 03:00 BP 119/78 11/20/18 03:00 Pulse Ox 94 L 11/20/18 03:00 Weight - Most Recent: 76.317 kg I&O - Last 24 hours: Intake & Output 11/19/18 11/19/18 11/20/18 14:59 22:59 06:59 Intake Total 50 85 2400 Output Total 900 Balance 50 85 1500 Lab Results - Last 24 hrs: Laboratory Results - last 24 hr 11/19/18 11/19/18 11/19/18 Range/Units 11:35 11:35 11:35 WBC 6.55 (4.0-11.0) K/uL RBC 4.88 (4.50-5.90) M/uL Hgb 15.3 (13.0-17.0) g/dL Hct 43.1 (38.0-50.0) % MCV 88.3 (80.0-98.0) fL MCH 31.4 (27.0-32.0) pg MCHC 35.5 (31.0-37.0) g/dL RDW Std Deviation 42.4 (28.0-62.0) fl RDW Coeff of Haritha 13 (11.0-15.0) % Plt Count 212 (150-400) K/uL MPV 9.40 (7.40-12.00) fL Neut % (Auto) 65.3 (48.0-80.0) % Lymph % (Auto) 22.6 (16.0-40.0) % [place] % (Auto) 10.7 (0.0-15.0) % Eos % (Auto) 1.1 (0.0-7.0) % Baso % (Auto) 0.3 (0.0-1.5) % Neut # (Auto) 4.3 (1.4-5.7) K/uL Lymph # (Auto) 1.5 (0.6-2.4) K/uL [place] # (Auto) 0.7 (0.0-0.8) K/uL Eos # (Auto) 0.1 (0.0-0.7) K/uL Baso # (Auto) 0.0 (0.0-0.1) K/uL Nucleated RBC % 0.0 /100WBC Nucleated RBCs # 0 K/uL INR 1.17 APTT 30.8 (18.6-31.3) SEC Sodium 138 (136-148) mmol/L Potassium 4.0 (3.5-5.1) mmol/L Chloride 104 (98-107) mmol/L Carbon Dioxide 25.1 (21.0-32.0) mmol/L BUN 15 (7.0-18.0) mg/dL Creatinine 1.1 (0.8-1.3) mg/dL Est Cr Clr Drug Dosing 76.92 mL/min Estimated GFR (MDRD) > 60.0 ml/min Glucose 86 (74-106) mg/dL Calcium 10.1 (8.5-10.1) mg/dL Magnesium (1.8-2.4) mg/dL Total Bilirubin 0.7 (0.2-1.0) mg/dL AST 18 (15-37) IU/L ALT 25 (14-63) IU/L Alkaline Phosphatase 44 L (46-116) U/L Troponin I < 0.050 (0.000-0.056) ng/mL Total Protein 7.8 (6.4-8.2) g/dL Albumin 3.9 (3.4-5.0) g/dL Globulin 3.9 (2.6-4.0) g/dL Albumin/Globulin Ratio 1.0 (0.9-1.6) TSH 3rd Generation (0.36-3.74) uIU/mL 11/19/18 11/19/18 11/19/18 Range/Units 11:35 11:35 17:40 WBC (4.0-11.0) K/uL RBC (4.50-5.90) M/uL Hgb (13.0-17.0) g/dL Hct (38.0-50.0) % MCV (80.0-98.0) fL MCH (27.0-32.0) pg MCHC (31.0-37.0) g/dL RDW Std Deviation (28.0-62.0) fl RDW Coeff of Haritha (11.0-15.0) % Plt Count (150-400) K/uL MPV (7.40-12.00) fL Neut % (Auto) (48.0-80.0) % Lymph % (Auto) (16.0-40.0) % [place] % (Auto) (0.0-15.0) % Eos % (Auto) (0.0-7.0) % Baso % (Auto) (0.0-1.5) % Neut # (Auto) (1.4-5.7) K/uL Lymph # (Auto) (0.6-2.4) K/uL [place] # (Auto) (0.0-0.8) K/uL Eos # (Auto) (0.0-0.7) K/uL Baso # (Auto) (0.0-0.1) K/uL Nucleated RBC % /100WBC Nucleated RBCs # K/uL INR APTT (18.6-31.3) SEC Sodium (136-148) mmol/L Potassium (3.5-5.1) mmol/L Chloride (98-107) mmol/L Carbon Dioxide (21.0-32.0) mmol/L BUN (7.0-18.0) mg/dL Creatinine (0.8-1.3) mg/dL Est Cr Clr Drug Dosing mL/min Estimated GFR (MDRD) ml/min Glucose (74-106) mg/dL Calcium (8.5-10.1) mg/dL Magnesium 2.2 (1.8-2.4) mg/dL Total Bilirubin (0.2-1.0) mg/dL AST (15-37) IU/L ALT (14-63) IU/L Alkaline Phosphatase (46-116) U/L Troponin I < 0.050 (0.000-0.056) ng/mL Total Protein (6.4-8.2) g/dL Albumin (3.4-5.0) g/dL Globulin (2.6-4.0) g/dL Albumin/Globulin Ratio (0.9-1.6) TSH 3rd Generation 3.52 (0.36-3.74) uIU/mL 11/20/18 11/20/18 Range/Units 00:15 05:35 WBC (4.0-11.0) K/uL RBC (4.50-5.90) M/uL Hgb (13.0-17.0) g/dL Hct (38.0-50.0) % MCV (80.0-98.0) fL MCH (27.0-32.0) pg MCHC (31.0-37.0) g/dL RDW Std Deviation (28.0-62.0) fl RDW Coeff of Haritha (11.0-15.0) % Plt Count (150-400) K/uL MPV (7.40-12.00) fL Neut % (Auto) (48.0-80.0) % Lymph % (Auto) (16.0-40.0) % [place] % (Auto) (0.0-15.0) % Eos % (Auto) (0.0-7.0) % Baso % (Auto) (0.0-1.5) % Neut # (Auto) (1.4-5.7) K/uL Lymph # (Auto) (0.6-2.4) K/uL [place] # (Auto) (0.0-0.8) K/uL Eos # (Auto) (0.0-0.7) K/uL Baso # (Auto) (0.0-0.1) K/uL Nucleated RBC % /100WBC Nucleated RBCs # K/uL INR APTT (18.6-31.3) SEC Sodium 139 (136-148) mmol/L Potassium 4.1 (3.5-5.1) mmol/L Chloride 107 (98-107) mmol/L Carbon Dioxide 24.6 (21.0-32.0) mmol/L BUN 13 (7.0-18.0) mg/dL Creatinine 1.0 (0.8-1.3) mg/dL Est Cr Clr Drug Dosing 83.74 mL/min Estimated GFR (MDRD) > 60.0 ml/min Glucose 90 (74-106) mg/dL Calcium 9.2 (8.5-10.1) mg/dL Magnesium (1.8-2.4) mg/dL Total Bilirubin 0.6 (0.2-1.0) mg/dL AST 13 L (15-37) IU/L ALT 24 (14-63) IU/L Alkaline Phosphatase 43 L (46-116) U/L Troponin I < 0.050 (0.000-0.056) ng/mL Total Protein 7.0 (6.4-8.2) g/dL Albumin 3.5 (3.4-5.0) g/dL Globulin 3.5 (2.6-4.0) g/dL Albumin/Globulin Ratio 1.0 (0.9-1.6) TSH 3rd Generation (0.36-3.74) uIU/mL Med Orders - Current: Current Medications Acetaminophen (Tylenol) 650 mg PO Q4H PRN PRN Reason: Pain (Mild 1-3)/fever Albuterol/Ipratropium (Duoneb 3.0-0.5 Mg/3 Ml) 3 ml NEB Q4HRRT PRN PRN Reason: Shortness Of Breath/wheezing Bisacodyl (Dulcolax) 5 mg PO DAILY PRN PRN Reason: Constipation Metoprolol Tartrate (Lopressor) 25 mg PO Q12H [facility] Last Admin: 11/19/18 21:05 Dose: 25 mg Morphine Sulfate (Morphine) 2 mg IVPUSH Q2H PRN PRN Reason: Pain (severe 7-10) Stop: 11/20/18 13:29 Nitroglycerin (Nitrostat) 0.4 mg SL Q5M PRN PRN Reason: Chest Pain Last Admin: 11/19/18 13:18 Dose: 0.4 mg Nitroglycerin (Nitrostat) 0.4 mg SL Q5M PRN PRN Reason: Chest Pain Omeprazole (Omeprazole) 20 mg PO BEDTIME [facility] Last Admin: 11/19/18 21:10 Dose: Not Given Ondansetron HCl (Zofran Odt) 4 mg PO Q4H PRN PRN Reason: nausea, able to take PO Ondansetron HCl (Zofran) 4 mg IVPUSH Q4H PRN PRN Reason: Nausea Polyethylene Glycol (Miralax) 17 gm PO DAILY PRN PRN Reason: Constipation Rivaroxaban (Xarelto) 20 mg PO DAILY@1999 [facility] Last Admin: 11/19/18 21:05 Dose: 20 mg Sodium Chloride (Saline Flush) 10 ml FLUSH ASDIRECTED PRN PRN Reason: Keep Vein Open Sodium Chloride (Saline Flush) 2.5 ml FLUSH ASDIRECTED PRN PRN Reason: Keep Vein Open Temazepam (Restoril) 15 mg PO BEDTIME PRN PRN Reason: Sleep Discontinued Medications Sodium Chloride (Normal Saline) 1,000 mls @ 125 mls/hr IV STAT [facility] Stop: 11/19/18 21:44 Last Admin: 11/19/18 15:30 Dose: 125 mls/hr Metoprolol Tartrate (Lopressor) 25 mg PO Q12H [facility] Last Admin: 11/19/18 17:16 Dose: Not Given - Exam Quality Assessment: Denies: Supplemental Oxygen General: Reports: Alert, Oriented, Cooperative, No Acute Distress HEENT: Reports: Pupils Equal, Pupils Reactive Neck: Reports: Supple, Trachea Midline Lungs: Reports: Clear to Auscultation, Normal Respiratory Effort Cardiovascular: Reports: Regular Rate, Regular Rhythm GI/Abdominal Exam: Normal Bowel Sounds, Soft, Non-Tender, No Distention (Male) Exam: Deferred Rectal (Males) Exam: Deferred Back Exam: Reports: Normal Inspection, Full Range of Motion Extremities: Normal Inspection, Normal Range of Motion, No Pedal Edema Skin: Reports: Warm, Dry, Intact Neurological: Reports: No New Focal Deficit Psy/Mental Status: Reports: Alert, Normal Affect, Normal Mood
[2018-11-20 08:02] VITALS: BP 116/73
[2018-11-20] MEDS: Metoprolol Tartrate 25 MG Tab PO SCH (09:34)
== END 2018-11-20 09:20 | disposition home or self-care (01) ==
LOC: MW.ED 11:02 → MW.MS 13:11
PROVIDERS: ADMIT Internal Medicine; ATTEND Internal Medicine
DX: R07.89 Other chest pain (principal); I48.0 Paroxysmal atrial fibrillation; Z79.01 Long term (current) use of anticoagulants
CPT/HCPCS: 36415; 71045; 80053; 83735; 84443; 84484; 85025; 85610; 85730; 93005; 96360; 96361; 99285; A9270; G0378; J7040

== ENCOUNTER 2019-04-13 20:26 | Emergency (ER) | payer OTHER ==
--- NOTE | 2019-04-13 20:29 | EDM.PDOC ---
<[facility] - Last Filed: 04/13/19 22:39> ED HPI GENERAL MEDICAL PROBLEM - General Chief Complaint: ENT Problem Stated Complaint: PT'S LT EAR HURTS Time Seen by Provider: 04/13/19 20:27 - History of Present Illness INITIAL COMMENTS - FREE TEXT/NARRATIVE: Patient signed out to me to follow CT soft tissue neck Patient does have a peritonsillar abscess which will require drainage, he is transferred to [facility]. Patient refused ambulance transfer accepts risks ; all risks and benefits discussed up to including patient voices understanding, his is present and agrees to drive him I did provide Decadron 10 mg IV and added blood cultures prior to his transfer Imaging to be pushed forward to Dr. Reyna as well as routine paperwork will be provided with patient - Related Data Allergies Allergy/AdvReac Type Severity Reaction Status Date / Time No Known Allergies Allergy Verified 11/19/18 11:14 Home Meds: Home Meds Amoxicillin/Potassium Clav [Amox-Clav 875-125 mg Tablet] 1 tab PO BID 04/13/19 [ History] Azelastine HCl 1 spray JASON 04/13/19 [History] Ibuprofen [Advil] 1 tab PO DAILY 04/13/19 [History] Pseudoephedrine HCl [Sudafed 12 Hour] 1 tab PO Q12HR 04/13/19 [History] Course - Vital Signs Last Recorded V/S: Last Vital Signs Temp 97.3 F 04/13/19 20:36 Pulse 86 04/13/19 23:01 Resp 18 04/13/19 23:01 BP 125/79 04/13/19 23:01 Pulse Ox 96 04/13/19 23:01 - Orders/Labs/Meds Orders: Active Orders 24 hr Category Date Time Status CULTURE BLOOD [BC] Stat Lab 04/13/19 22:40 Received CULTURE BLOOD [BC] Stat Lab 04/13/19 22:48 Received Blood Culture x2 Reflex Set [OM.PC] Stat Oth 04/13/19 22:22 Ordered Labs: Laboratory Tests 04/13/19 04/13/19 Range/Units 21:00 21:00 WBC 10.52 (4.0-11.0) K/uL RBC 4.82 (4.50-5.90) M/uL Hgb 14.9 (13.0-17.0) g/dL Hct 43.1 (38.0-50.0) % MCV 89.4 (80.0-98.0) fL MCH 30.9 (27.0-32.0) pg MCHC 34.6 (31.0-37.0) g/dL RDW Std Deviation 42.6 (28.0-62.0) fl RDW Coeff of Haritha 13 (11.0-15.0) % Plt Count 238 (150-400) K/uL MPV 9.50 (7.40-12.00) fL Neut % (Auto) 68.7 (48.0-80.0) % Lymph % (Auto) 20.2 (16.0-40.0) % [place] % (Auto) 10.0 (0.0-15.0) % Eos % (Auto) 0.8 (0.0-7.0) % Baso % (Auto) 0.3 (0.0-1.5) % Neut # (Auto) 7.2 H (1.4-5.7) K/uL Lymph # (Auto) 2.1 (0.6-2.4) K/uL [place] # (Auto) 1.1 H (0.0-0.8) K/uL Eos # (Auto) 0.1 (0.0-0.7) K/uL Baso # (Auto) 0.0 (0.0-0.1) K/uL Nucleated RBC % 0.0 /100WBC Nucleated RBCs # 0 K/uL Sodium 138 (136-148) mmol/L Potassium 3.9 (3.5-5.1) mmol/L Chloride 102 (98-107) mmol/L Carbon Dioxide 26.5 (21.0-32.0) mmol/L BUN 15 (7.0-18.0) mg/dL Creatinine 1.0 (0.8-1.3) mg/dL Est Cr Clr Drug Dosing 81.08 mL/min Estimated GFR (MDRD) > 60.0 ml/min Glucose 94 (74-106) mg/dL Calcium 9.3 (8.5-10.1) mg/dL Total Bilirubin 0.8 (0.2-1.0) mg/dL AST 22 (15-37) IU/L ALT 30 (14-63) IU/L Alkaline Phosphatase 65 (46-116) U/L Total Protein 7.6 (6.4-8.2) g/dL Albumin 3.9 (3.4-5.0) g/dL Globulin 3.7 (2.6-4.0) g/dL Albumin/Globulin Ratio 1.1 (0.9-1.6) Meds: Medications Discontinued Medications Generic Name Dose Route Start Last Admin Trade Name Calvin PRN Reason Stop Dose Admin Dexamethasone 10 mg 04/13/19 22:31 04/13/19 22:37 Dexamethasone IVPUSH 04/13/19 22:32 10 mg ONETIME ONE Administration Ceftriaxone Sodium/Dextrose 1 50 mls @ 100 mls/hr 04/13/19 20:42 04/13/19 21: 10 gm/ Premix IV 04/13/19 21:11 100 mls/hr ONETIME ONE Administration Clindamycin Phosphate 300 mg/ 52 mls @ 100 mls/hr 04/13/19 22:31 04/13/19 23: 12 Sodium Chloride IV 04/13/19 23:02 Not Given ONETIME ONE Iopamidol 100 ml 04/13/19 21:31 04/13/19 21:47 Isovue-370 (76%) IVPUSH 04/13/19 21:32 100 ml ONETIME ONE Administration Methylprednisolone Sodium Succinate 125 mg 04/13/19 20:42 04/13/19 21:09 Solu-Medrol IVPUSH 04/13/19 20:43 125 mg ONETIME ONE Administration Departure - Departure Time of Disposition: 22:41 Disposition: DC/Tfer to Acute Hospital 02 Condition: Poor Clinical Impression: Peritonsillar abscess Otitis media Qualifiers: Otitis media type: unspecified Laterality: left Qualified Code(s): H66.92 - Otitis media, unspecified, left ear - Discharge Information Referrals: PCP,None [Primary Care Provider] - Forms: ED Department Discharge Additional Instructions: proceed directly to [place], [place] emergency room, Dr. Adrien Reyna is anticipating your arrival Information packet provided to present to emergency room /hospital on arrival <Cr Carty - Last Filed: 04/14/19 10:57> ED HPI GENERAL MEDICAL PROBLEM - General Source of Information: Reports: Patient History Limitations: Reports: No Limitations - History of Present Illness INITIAL COMMENTS - FREE TEXT/NARRATIVE: HISTORY AND PHYSICAL: History of present illness: Patient is a 64-year-old male who presents to the emergency room today with complaints of left ear and throat pain. Patient reports he was seen by his primary care provider on Monday and given a prescription. For unknown reasons he did not fill or start his antibiotic until yesterday. He has taken 3 doses of his Augmentin 875 - PO. He states that his pain is not improving. Patient denies any fever, chills, headache, change in vision, syncope or near syncope. Denies any chest pain, back pain, shortness of breath or cough. Denies any abdominal pain, nausea, vomiting, diarrhea, constipation or dysuria. Has not noted any blood in urine or stool. Patient has been eating and drinking appropriately. Review of systems: As per history of present illness and below otherwise all systems reviewed and negative. Past medical history: As per history of present illness and as reviewed below otherwise noncontributory. Surgical history: As per history of present illness and as reviewed below otherwise noncontributory. Social history: See social history for further information Family history: As per history of present illness and as reviewed below otherwise noncontributory. Physical exam: General: Well-developed and well-nourished 64-year-old male. Alert and oriented. Nontoxic appearing and in no acute distress. HEENT: Atraumatic, normocephalic, pupils equal and reactive bilaterally, negative for conjunctival pallor or scleral icterus, mucous membranes moist, there is a spot at the 2 to 3:00 on the left TM and that is erythematous, otherwise good light reflex. Right TM normal. He does have moderate erythema with mild soft tissue swelling noted to the posterior throat/soft palate. Neck is nontender, supple and trachea midline. No drooling or trismus noted. No meningeal signs. No hot potato voice noted. Lungs: Clear to auscultation, breath sounds equal bilaterally, chest nontender. Heart: S1S2, regular rate and rhythm without overt murmur Abdomen: Soft, nondistended, nontender.. Skin: Intact, warm, dry. No lesions or rashes noted. Extremities: Atraumatic, moves all extremities per self without difficulty or deficits, negative for cords or calf pain. Neurovascular unremarkable. Neuro: Awake, alert, oriented. Cranial nerves II through XII unremarkable. Cerebellum unremarkable. Motor and sensory unremarkable throughout. Exam nonfocal. Notes: Lab work is unremarkable. CT results pending. Dr Tobias will follow these and disposition patient appropriately. Diagnostics: CBC, CMP, CT soft tissue neck Therapeutics: Solu-Medrol, Rocephin Prescription: Phenergan with codeine Impression: Otitis media, left Peritonsillar abscess Plan: Per Dr. Tobias Definitive disposition and diagnosis as appropriate pending reevaluation and review of above. Duration: Day(s): left ear Pain Score (Numeric/FACES): 9 Past Medical History HEENT History: Reports: Impaired Vision Cardiovascular History: Reports: Afib Respiratory History: Reports: None Other Respiratory History: "[place] [facility]" 20 years ago Gastrointestinal History: Reports: None Genitourinary History: Reports: None Musculoskeletal History: Reports: Fracture, Osteoarthritis, Other (See Below) Other Musculoskeletal History: FX "Collar bone X 6 years ago, leg X 2", chronic pain to back Neurological History: Reports: Migraines, Vertigo, Other (See Below) Other Neuro History: Occular Migraines Psychiatric History: Reports: None Endocrine/Metabolic History: Reports: None Hematologic History: Reports: Other (See Below) Other Hematologic History: Previous anticoagulation therapy for history of A- Fib. Immunologic History: Reports: None Oncologic (Cancer) History: Reports: None Dermatologic History: Reports: None - Infectious Disease History Infectious Disease History: Reports: None - Past Surgical History Head Surgeries/Procedures: Reports: None HEENT Surgical History: Reports: None, Oral Surgery, Tonsillectomy Cardiovascular Surgical History: Reports: None Musculoskeletal Surgical History: Reports: None Social & Family History - Family History Family Medical History: Noncontributory - Caffeine Use Caffeine Use: Reports: None ED ROS ENT - Review of Systems Review Of Systems: ROS reveals no pertinent complaints other than HPI. ED EXAM, ENT - Physical Exam Exam: See Below (See dictation) Course - Vital Signs Last Recorded V/S: Last Vital Signs Temp 97.3 F 04/13/19 20:36 Pulse 86 04/13/19 23:01 Resp 18 04/13/19 23:01 BP 125/79 04/13/19 23:01 Pulse Ox 96 04/13/19 23:01 - Orders/Labs/Meds Orders: Active Orders 24 hr Category Date Time Status CULTURE BLOOD [BC] Stat Lab 04/13/19 22:40 Received CULTURE BLOOD [BC] Stat Lab 04/13/19 22:48 Received Blood Culture x2 Reflex Set [OM.PC] Stat Oth 04/13/19 22:22 Ordered Labs: Laboratory Tests 04/13/19 04/13/19 Range/Units 21:00 21:00 WBC 10.52 (4.0-11.0) K/uL RBC 4.82 (4.50-5.90) M/uL Hgb 14.9 (13.0-17.0) g/dL Hct 43.1 (38.0-50.0) % MCV 89.4 (80.0-98.0) fL MCH 30.9 (27.0-32.0) pg MCHC 34.6 (31.0-37.0) g/dL RDW Std Deviation 42.6 (28.0-62.0) fl RDW Coeff of Haritha 13 (11.0-15.0) % Plt Count 238 (150-400) K/uL MPV 9.50 (7.40-12.00) fL Neut % (Auto) 68.7 (48.0-80.0) % Lymph % (Auto) 20.2 (16.0-40.0) % [place] % (Auto) 10.0 (0.0-15.0) % Eos % (Auto) 0.8 (0.0-7.0) % Baso % (Auto) 0.3 (0.0-1.5) % Neut # (Auto) 7.2 H (1.4-5.7) K/uL Lymph # (Auto) 2.1 (0.6-2.4) K/uL [place] # (Auto) 1.1 H (0.0-0.8) K/uL Eos # (Auto) 0.1 (0.0-0.7) K/uL Baso # (Auto) 0.0 (0.0-0.1) K/uL Nucleated RBC % 0.0 /100WBC Nucleated RBCs # 0 K/uL Sodium 138 (136-148) mmol/L Potassium 3.9 (3.5-5.1) mmol/L Chloride 102 (98-107) mmol/L Carbon Dioxide 26.5 (21.0-32.0) mmol/L BUN 15 (7.0-18.0) mg/dL Creatinine 1.0 (0.8-1.3) mg/dL Est Cr Clr Drug Dosing 81.08 mL/min Estimated GFR (MDRD) > 60.0 ml/min Glucose 94 (74-106) mg/dL Calcium 9.3 (8.5-10.1) mg/dL Total Bilirubin 0.8 (0.2-1.0) mg/dL AST 22 (15-37) IU/L ALT 30 (14-63) IU/L Alkaline Phosphatase 65 (46-116) U/L Total Protein 7.6 (6.4-8.2) g/dL Albumin 3.9 (3.4-5.0) g/dL Globulin 3.7 (2.6-4.0) g/dL Albumin/Globulin Ratio 1.1 (0.9-1.6) Meds: Medications Discontinued Medications Generic Name Dose Route Start Last Admin Trade Name Calvin PRN Reason Stop Dose Admin Dexamethasone 10 mg 04/13/19 22:31 04/13/19 22:37 Dexamethasone IVPUSH 04/13/19 22:32 10 mg ONETIME ONE Administration Ceftriaxone Sodium/Dextrose 1 50 mls @ 100 mls/hr 04/13/19 20:42 04/13/19 21: 10 gm/ Premix IV 04/13/19 21:11 100 mls/hr ONETIME ONE Administration Clindamycin Phosphate 300 mg/ 52 mls @ 100 mls/hr 04/13/19 22:31 04/13/19 23: 12 Sodium Chloride IV 04/13/19 23:02 Not Given ONETIME ONE Iopamidol 100 ml 04/13/19 21:31 04/13/19 21:47 Isovue-370 (76%) IVPUSH 04/13/19 21:32 100 ml ONETIME ONE Administration Methylprednisolone Sodium Succinate 125 mg 04/13/19 20:42 04/13/19 21:09 Solu-Medrol IVPUSH 04/13/19 20:43 125 mg ONETIME ONE Administration
[2019-04-13] MEDS ORDERED: cefTRIAXone 1 GM in Premix Bag 1 BAG IV ONE (20:42)
[2019-04-13] MEDS ORDERED: methylPREDNISolone Sodium Succinate 125 MG/2 ML SDV IVPUSH ONE (20:42)
[2019-04-13 21:26] LABS: CHLORIDE,CL 102 mmol/L (98-107); SODIUM,NA 138 mmol/L (136-148)
[2019-04-13] MEDS ORDERED: Iopamidol 755 Mg/ML 100 ML Bottle IVPUSH ONE (21:31)
[2019-04-13] MEDS ORDERED: Dexamethasone 10 MG/ML SDV IVPUSH ONE (22:31)
--- NOTE | 2019-04-13 22:33 | CT ---
INDICATION: Left-sided pain and swelling. TECHNIQUE: CT of the neck with 100 cc Omnipaque 350 IV iodinated contrast agent. Coronal and sagittal reconstructions. COMPARISON: None FINDINGS: There is a 2.9 x 2.2 x 1.8 cm left palatine tonsil peritonsillar abscess (image 25 series 201). Bilateral swelling of the palatine tonsils with mild airway narrowing. Edema and enhancement of the left pharyngeal wall extending from the left palatine tonsil to the epiglottis consistent with pharyngitis. Edema and enhancement of the soft palate and uvula.There is also moderate swelling and enhancement of the soft palate and uvula. No lymphadenopathy. Scattered normal appearing lymph nodes are present throughout the neck bilaterally. All the major vascular structures opacify normally with contrast material. There are scattered vascular calcifications within the aortic arch and branch vessels. The salivary glands and thyroid gland are normal in appearance. The paranasal sinuses and mastoid air cells are clear, and the airway is widely patent. Multilevel mild cervical spondylosis. Posterior disk osteophyte complexes at C3-4, C4-5, C5-6, C6-7 with mild to moderate spinal canal stenosis at C4-5, C5-6 and C6-7. Mild right neural for narrowing and C5-6 due to uncinate spurring and facet arthrosis. No lytic or blastic process within the imaged osseous structures. The paraspinous muscles are symmetric and normal in appearance. Visualized portions of the brain are within normal limits. The orbital contents are normal. No abnormality is demonstrated in the mediastinum or supraclavicular regions. No pneumothorax or pleural effusion. The visualized pulmonary apices are clear. IMPRESSION: 1. There is a 2.9 x 2.2 x 1.8 cm left palatine tonsil peritonsillar abscess. Bilateral swelling of the palatine tonsils with mild airway narrowing. Edema and enhancement of the left pharyngeal wall extending from the left palatine tonsil to the epiglottis consistent with pharyngitis. Edema and enhancement of the soft palate and uvula. 2. A few prominent enhancing left level 2 lymph nodes are likely reactive in etiology. 3. Posterior disk osteophyte complexes at C3-4, C4-5, C5-6, C6-7 with mild to moderate spinal canal stenosis at C4-5, C5-6 and C6-7. 4. Findings discussed with Dr. Solomon at 10:31 pm Please note that all CT scans at this facility use dose modulation, iterative reconstruction, and/or weight-based dosing when appropriate to reduce radiation dose to as low as reasonably achievable. Dictated by Johnny Paul MD @ Apr 13 2019 10:15PM Signed by Dr. Johnny Paul @ Apr 13 2019 10:31PM
[2019-04-13 23:02] VITALS: BP 125/79
== END 2019-04-13 23:02 ==
LOC: MW.ED 20:26
DX: H66.92 Otitis media, unspecified, left ear (principal); J36 Peritonsillar abscess
CPT/HCPCS: 36415; 70491; 80053; 85025; 87040; 96365; 96375; 99284; A4217; J0696; J1100; J2930; Q9967

== ENCOUNTER 2021-01-29 10:21 | Observation (INO) | payer OTHER ==
[2021-01-29] MEDS ORDERED: Sodium Chloride 0.9% 10 ML Syringe FLUSH PRN (10:25)
[2021-01-29] MEDS ORDERED: Sodium Chloride 0.9% 2.5 ML Syringe FLUSH PRN ×2 (10:25→13:13)
[2021-01-29] MEDS ORDERED: Metoclopramide 10 MG/2 ML SDV IV ONE (10:28)
[2021-01-29] MEDS ORDERED: Lactated Ringers 1,000 ML IV SCH (10:30)
--- NOTE | 2021-01-29 10:30 | EDM.PDOC ---
ED HPI GENERAL MEDICAL PROBLEM - General Chief Complaint: Gastrointestinal Problem Stated Complaint: EMS Time Seen by Provider: 01/29/21 10:30 Source of Information: Reports: Patient History Limitations: Reports: No Limitations - History of Present Illness INITIAL COMMENTS - FREE TEXT/NARRATIVE: HISTORY AND PHYSICAL: History of present illness: Patient is a 65-year-old male who is brought to the emergency room by ambulance with complaints of extreme dizziness, near syncope, nausea and dry heaving since waking up this morning. He states he woke up feeling dizzy and when he tried to move around he felt like he was going to pass out. The dizziness improves if he closes his eyes instead still, any movement causes him to feel nauseated and dry heave. He states he does have body aches, particularly his left dealt in which he had the COVID-19 vaccine a week ago. He states he has a sensation of needing to have a bowel movement, but doesn't feel strong enough to make it to the bathroom. called EMS. EMS gave 8 mg of Zofran, 50 mg of Benadryl and started LR at [facility]. Patient did get some relief with these medications. He denies any recent injury, trauma or falls. Patient denies any fever, chills, headache, or change in vision. Denies any chest pain, back pain, shortness of breath or cough. Denies any abdominal pain, constipation or dysuria. Has not noted any blood in urine or stool. Patient had previously been eating and drinking appropriately. Patient has a past medical history of atrial fibrillation, previously had been on Coumadin but he took himself off of this as he didn't like the way it made him feel. History of migraines and vertigo. Review of systems: As per history of present illness and below otherwise all systems reviewed and negative. Past medical history: As per history of present illness and as reviewed below otherwise noncontributory. Surgical history: As per history of present illness and as reviewed below otherwise nonc ontributory. Social history: See social history for further information Family history: As per history of present illness and as reviewed below otherwise noncontributory. Physical exam: General: Well developed and well nourished. Alert and orientated x 3. Nontoxic in appearance and in no acute distress. Vital signs are stable and have been reviewed by me. Nursing notes were reviewed. HEENT: Atraumatic, normocephalic, pupils equal and reactive bilaterally, negative for conjunctival pallor or scleral icterus, mucous membranes moist, TMs normal bilaterally, throat clear, neck supple, nontender, trachea midline. No drooling or trismus noted. No meningeal signs. No hot potato voice noted. Lungs: Clear to auscultation bilaterally. No wheezes, rales, or rhonchi. Chest nontender. Normal work of breathing, no accessory muscles used. Heart: S1S2, regular rate and rhythm without overt murmur, gallops, or rubs. No JVD. No peripheral edema Abdomen: Soft, nondistended, nontender. Normoactive bowel sounds. Negative for masses or costovertebral tenderness. Skin: Intact, warm, dry. No lesions or rashes noted. Hematologic: No petechiae or purpra. Mucosa appropriate color and normal nail bed color and refill. Extremities: Atraumatic, moves all extremities per self without difficulty or deficits, negative for cords or calf pain. Neurovascular unremarkable. Neuro: Awake, alert, oriented. Cranial nerves II through XII unremarkable. Cerebellum unremarkable. Motor and sensory unremarkable throughout. Exam nonfocal. Psychiatric: Mood and affect are appropriate. Normal thought process. Answering questions appropriately. Notes: *This patient was seen and evaluated during the 2019 SARS-CoV-2 novel coronavirus pandemic period. Community viral transmission is ongoing at time of this encounter and the emergency department is operating under pandemic response procedures. EKG shows normal sinus rhythm with rate of 70. No significant findings. No changes from previous EKG in 2019. Lab work shows no significant findings. CT head shows no evidence of acute intracranial abnormality. Stable small focus of hyperattenuation in the left frontal lobe at site of prior gliosis. CXR shows hyperinflation and chronic interstitial change with mild superimposed pulmonary vascular congestion. Patient has not been able to void. I have talked with the patient about today's findings, in addition to providing specific details for plan of care. Reassessment at the time of disposition demonstrates that the patient is in no acute distress although he still feels dizzy and has intermittent wretching. He does state he feels improved after the Valium. Spoke with about disposition. Shared decision making, we will keep patient over night for observation. Dr Castro was consulted and agreeable to keeping patient for further care. Diagnostics: CBC, CMP, Troponin, CPK, INR, EKG, CXR, Head CT, Coronavirus Therapeutics: LR at 150mls/hr, Reglan Impression: Near Syncope Vertigo Plan: Observation admission to Med/Surg with telemetry Definitive disposition and diagnosis as appropriate pending reevaluation and review of above. abdomen Pain Score (Numeric/FACES): 5 - Related Data Allergies Allergy/AdvReac Type Severity Reaction Status Date / Time erythromycin base Allergy Other Verified 01/29/21 10:24 Home Meds: Home Meds . [No Known Home Meds] 01/29/21 [History] Past Medical History HEENT History: Reports: Impaired Vision Cardiovascular History: Reports: Afib Respiratory History: Reports: None Other Respiratory History: "[place] Lung" 20 years ago Gastrointestinal History: Reports: None Genitourinary History: Reports: None Musculoskeletal History: Reports: Fracture, Osteoarthritis, Other (See Below) Other Musculoskeletal History: FX "Collar bone X 6 years ago, leg X 2", chronic pain to back Neurological History: Reports: Migraines, Vertigo, Other (See Below) Other Neuro History: Occular Migraines Psychiatric History: Reports: None Endocrine/Metabolic History: Reports: None Hematologic History: Reports: Other (See Below) Other Hematologic History: Previous anticoagulation therapy for history of A- Fib. Immunologic History: Reports: None Oncologic (Cancer) History: Reports: None Dermatologic History: Reports: None - Infectious Disease History Infectious Disease History: Reports: None - Past Surgical History Head Surgeries/Procedures: Reports: None HEENT Surgical History: Reports: None, Oral Surgery, Tonsillectomy Cardiovascular Surgical History: Reports: None Musculoskeletal Surgical History: Reports: None Social & Family History - Family History Family Medical History: No Pertinent Family History - Caffeine Use Caffeine Use: Reports: None ED ROS GENERAL - Review of Systems Review Of Systems: Comprehensive ROS is negative, except as noted in HPI. ED EXAM, GENERAL - Physical Exam Exam: See Below (See dictation) Course - Vital Signs Last Recorded V/S: Last Vital Signs Temp 96.6 F L 01/29/21 10:25 Pulse 79 01/29/21 12:05 Resp 18 01/29/21 11:36 BP 131/74 01/29/21 12:05 Pulse Ox 92 L 01/29/21 12:05 - Orders/Labs/Meds Orders: Active Orders 24 hr Category Date Time Status Admission Status [Patient Status] [ADT] Stat ADT 01/29/21 12:08 Ordered EKG Documentation Completion [RC] STAT Care 01/29/21 10:25 Active UA RFX RADHA AND CULT IF INDIC [URIN] Stat Lab 01/29/21 10:25 Ordered Lactated Ringers [Ringers, Lactated] 1,000 ml Med 01/29/21 10:30 Active IV ASDIRECTED Sodium Chloride 0.9% [Saline Flush] Med 01/29/21 10:25 Active 10 ml FLUSH ASDIRECTED PRN Sodium Chloride 0.9% [Saline Flush] Med 01/29/21 10:25 Active 2.5 ml FLUSH ASDIRECTED PRN Saline Lock Insert [OM.PC] Stat Oth 01/29/21 10:25 Ordered Medication Orders Lactated Ringer's (Ringers, Lactated) 1,000 mls @ 150 mls/hr IV ASDIRECTED SEGUN Last Admin: 01/29/21 10:41 Dose: 150 mls/hr Documented by: SLATBRI Sodium Chloride (Sodium Chloride 0.9% 10 Ml Syringe) 10 ml FLUSH ASDIRECTED PRN PRN Reason: Keep Vein Open Last Admin: 01/29/21 10:39 Dose: 10 ml Documented by: SLATBRI Sodium Chloride (Sodium Chloride 0.9% 2.5 Ml Syringe) 2.5 ml FLUSH ASDIRECTED PRN PRN Reason: Keep Vein Open Last Admin: 01/29/21 10:40 Dose: 2.5 ml Documented by: THEERI Labs: Laboratory Tests 01/29/21 01/29/21 01/29/21 Range/Units 10:38 10:38 10:38 WBC 8.55 (4.0-11.0) K/uL RBC 4.70 (4.50-5.90) M/uL Hgb 14.8 (13.0-17.0) g/dL Hct 42.9 (38.0-50.0) % MCV 91.3 (80.0-98.0) fL MCH 31.5 (27.0-32.0) pg MCHC 34.5 (31.0-37.0) g/dL RDW Std Deviation 44.1 (28.0-62.0) fl RDW Coeff of Haritha 13 (11.0-15.0) % Plt Count 190 (150-400) K/uL MPV 9.70 (7.40-12.00) fL Neut % (Auto) 78.2 (48.0-80.0) % Lymph % (Auto) 15.9 L (16.0-40.0) % Owsley % (Auto) 4.8 (0.0-15.0) % Eos % (Auto) 0.9 (0.0-7.0) % Baso % (Auto) 0.2 (0.0-1.5) % Neut # (Auto) 6.7 H (1.4-5.7) K/uL Lymph # (Auto) 1.4 (0.6-2.4) K/uL Owsley # (Auto) 0.4 (0.0-0.8) K/uL Eos # (Auto) 0.1 (0.0-0.7) K/uL Baso # (Auto) 0.0 (0.0-0.1) K/uL Nucleated RBC % 0.0 /100WBC Nucleated RBCs # 0 K/uL INR 1.28 Sodium 138 (136-148) mmol/L Potassium 3.9 (3.5-5.1) mmol/L Chloride 103 (98-107) mmol/L Carbon Dioxide 25.7 (21.0-32.0) mmol/L BUN 19 H (7.0-18.0) mg/dL Creatinine 1.2 (0.8-1.3) mg/dL Est Cr Clr Drug Dosing 68.32 mL/min Estimated GFR (MDRD) > 60.0 ml/min Glucose 168 H (74-106) mg/dL Calcium 8.5 (8.5-10.1) mg/dL Total Bilirubin 0.7 (0.2-1.0) mg/dL AST 25 (15-37) IU/L ALT 50 (14-63) IU/L Alkaline Phosphatase 43 L (46-116) U/L Creatine Kinase 38 (26-308) U/L Troponin I < 0.050 (0.000-0.056) ng/mL Total Protein 6.8 (6.4-8.2) g/dL Albumin 3.4 (3.4-5.0) g/dL Globulin 3.4 (2.6-4.0) g/dL Albumin/Globulin Ratio 1.0 (0.9-1.6) SARS-CoV-2 RNA (ALEX) (NEGATIVE) 01/29/21 Range/Units 11:00 WBC (4.0-11.0) K/uL RBC (4.50-5.90) M/uL Hgb (13.0-17.0) g/dL Hct (38.0-50.0) % MCV (80.0-98.0) fL MCH (27.0-32.0) pg MCHC (31.0-37.0) g/dL RDW Std Deviation (28.0-62.0) fl RDW Coeff of Haritha (11.0-15.0) % Plt Count (150-400) K/uL MPV (7.40-12.00) fL Neut % (Auto) (48.0-80.0) % Lymph % (Auto) (16.0-40.0) % Owsley % (Auto) (0.0-15.0) % Eos % (Auto) (0.0-7.0) % Baso % (Auto) (0.0-1.5) % Neut # (Auto) (1.4-5.7) K/uL Lymph # (Auto) (0.6-2.4) K/uL Owsley # (Auto) (0.0-0.8) K/uL Eos # (Auto) (0.0-0.7) K/uL Baso # (Auto) (0.0-0.1) K/uL Nucleated RBC % /100WBC Nucleated RBCs # K/uL INR Sodium (136-148) mmol/L Potassium (3.5-5.1) mmol/L Chloride (98-107) mmol/L Carbon Dioxide (21.0-32.0) mmol/L BUN (7.0-18.0) mg/dL Creatinine (0.8-1.3) mg/dL Est Cr Clr Drug Dosing mL/min Estimated GFR (MDRD) ml/min Glucose (74-106) mg/dL Calcium (8.5-10.1) mg/dL Total Bilirubin (0.2-1.0) mg/dL AST (15-37) IU/L ALT (14-63) IU/L Alkaline Phosphatase (46-116) U/L Creatine Kinase (26-308) U/L Troponin I (0.000-0.056) ng/mL Total Protein (6.4-8.2) g/dL Albumin (3.4-5.0) g/dL Globulin (2.6-4.0) g/dL Albumin/Globulin Ratio (0.9-1.6) SARS-CoV-2 RNA (ALEX) NEGATIVE (NEGATIVE) Meds: Medications Generic Name Dose Route Start Last Admin Trade Name Bridgerq PRN Reason Stop Dose Admin Lactated Ringer's 1,000 mls @ 150 mls/hr 01/29/21 10:30 01/29/21 10:41 Ringers, Lactated IV 150 mls/hr ASDIRECTED SEGUN Administration Sodium Chloride 10 ml 01/29/21 10:25 01/29/21 10:39 Sodium Chloride 0.9% 10 Ml Syringe FLUSH 10 ml ASDIRECTED PRN Administration Keep Vein Open Sodium Chloride 2.5 ml 01/29/21 10:25 01/29/21 10:40 Sodium Chloride 0.9% 2.5 Ml Syringe FLUSH 2.5 ml ASDIRECTED PRN Administration Keep Vein Open Discontinued Medications Generic Name Dose Route Start Last Admin Trade Name Calvin PRN Reason Stop Dose Admin Diazepam 5 mg 01/29/21 11:27 01/29/21 11:34 Diazepam 10 Mg/2 Ml Syringe IVPUSH 01/29/21 11:28 5 mg ONETIME ONE Administration Metoclopramide HCl 10 mg 01/29/21 10:28 01/29/21 10:39 Metoclopramide 10 Mg/2 Ml Sdv IV 01/29/21 10:29 10 mg ONETIME ONE Administration Departure - Departure Time of Disposition: 12:10 Disposition: Refer to Observation Clinical Impression: Vertigo, Near syncope - Discharge Information Referrals: PCP,None [Primary Care Provider] - Forms: ED Department Discharge Sepsis Event Note (ED) - Evaluation Sepsis Screening Result: No Definite Risk - Focused Exam Vital Signs: Vital Signs Temp Pulse Resp BP Pulse Ox 01/29/21 12:05 79 131/74 92 L 01/29/21 11:36 82 18 118/62 90 L 01/29/21 11:22 70 133/70 93 L 01/29/21 10:25 96.6 F L 74 16 153/91 H 96 - My Orders Last 24 Hours: My Active Orders 01/29/21 10:25 EKG Documentation Completion [RC] STAT UA RFX RADHA AND CULT IF INDIC [URIN] Stat Sodium Chloride 0.9% [Saline Flush] 10 ml FLUSH ASDIRECTED PRN Sodium Chloride 0.9% [Saline Flush] 2.5 ml FLUSH ASDIRECTED PRN Saline Lock Insert [OM.PC] Stat 01/29/21 10:30 Lactated Ringers [Ringers, Lactated] 1,000 ml IV ASDIRECTED 01/29/21 12:08 Admission Status [Patient Status] [ADT] Stat - Assessment/Plan Last 24 Hours: My Active Orders 01/29/21 10:25 EKG Documentation Completion [RC] STAT UA RFX RADHA AND CULT IF INDIC [URIN] Stat Sodium Chloride 0.9% [Saline Flush] 10 ml FLUSH ASDIRECTED PRN Sodium Chloride 0.9% [Saline Flush] 2.5 ml FLUSH ASDIRECTED PRN Saline Lock Insert [OM.PC] Stat 01/29/21 10:30 Lactated Ringers [Ringers, Lactated] 1,000 ml IV ASDIRECTED 01/29/21 12:08 Admission Status [Patient Status] [ADT] Stat
--- NOTE | 2021-01-29 10:47 | PCM.EKG ---
#1 Interpretation EKG Date: 01/29/21 Time: 10:40 Rhythm: NSR Rate (Beats/Min): 70 ST-T: Normal
[2021-01-29 11:07] LABS: BLOOD UREA NITROGEN,BUN 19 mg/dL (7.0-18.0); CARBON DIOXIDE,CO2 25.7 mmol/L (21.0-32.0); CHLORIDE,CL 103 mmol/L (98-107); GLUCOSE RANDOM 168 mg/dL (74-106); POTASSIUM,K 3.9 mmol/L (3.5-5.1); SODIUM,NA 138 mmol/L (136-148)
--- NOTE | 2021-01-29 11:25 | CT ---
INDICATION: Vertigo status post COVID shot 1 week ago. TECHNIQUE: CT of the head without contrast. Coronal and sagittal reformats. Bone and soft tissue algorithms. COMPARISON: MRI 01/23/2017, CT 01/15/2017 FINDINGS: No acute intracranial hemorrhage or extra-axial collection. No evidence of acute cortical infarction. No mass effect or midline shift. Mild regions of decreased attenuation within the periventricular and subcortical white matter of both cerebral hemispheres most likely reflects chronic microvascular ischemic disease and age related change in this patient. Vascular calcifications within the carotid siphons. Orbital contents are normal. No calvarial fractures. No lytic or sclerotic osseous lesions within the calvarium or skull base. Scalp and other imaged soft tissue structures are normal. Mastoid air cells are clear. IMPRESSION: 1. No evidence of acute intracranial abnormality. 2. Stable small focus of hyperattenuation in the left frontal lobe at site of prior gliosis. Please note that all CT scans at this facility use dose modulation, iterative reconstruction, and/or weight-based dosing when appropriate to reduce radiation dose to as low as reasonably achievable. Dictated by Johnny Paul MD @ Jan 29 2021 11:16AM Signed by Dr. Johnny Paul @ Jan 29 2021 11:24AM
--- NOTE | 2021-01-29 11:56 | CR ---
Indication: Vertigo Comparison: Single-view chest November 19, 2018 Technique: Single AP view chest Findings: There is hyperinflation and chronic interstitial change. There is no focal consolidation, effusion, or pneumothorax. The cardiac silhouette is mildly prominent with a tortuous thoracic aorta. The bony thorax is grossly intact. Impression: Hyperinflation and chronic interstitial change with mild superimposed pulmonary vascular congestion. Dictated by Aguilar Davila MD @ Jan 29 2021 11:54AM Signed by Dr. Aguilar Davila @ Jan 29 2021 11:55AM
--- NOTE | 2021-01-29 12:19 | PCM.HP.2 ---
H&P History of Present Illness - General Date of Service: 01/29/21 Admit Problem/Dx: Admission Diagnosis/Problem Admission Diagnosis/Problem Vertigo Source of Information: Patient History Limitations: Reports: No Limitations - History of Present Illness Initial Comments - Free Text/Narative: This 65-year-old male with past medical history of atrial fibrillation currently not on any anticoagulation or rate controlling medication presented to the ER with complaints of sudden onset of dizziness and vomiting that occurred this morning. He reports he woke up feeling dizzy and when he tried to move around he felt like he was going to pass out. He reports with any movement of his head the dizziness is severe and has this feeling of near syncope. He reports nausea and dry heaving starts as well. He reports that he is having some body aches and left arm pain after COVID-19 vaccine 1 week ago. He received Pfizer vaccine 1 of 2 doses. Patient was brought in by EMS as he does not feel strong enough or stable enough to ambulate. EMS gave 8 mg of Zofran 50 mg of Benadryl as well as small amount of IV fluids. Patient reported mild relief with these medications. He denies any sinus congestion, ear pain, the need to have ears pop, or headache. 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 He does report mild occipital neck pain on the right side which is common when he gets some migraines. He denies fevers or chills. Denies any chest pain shortness of breath palpitations back pain or cough. Denies any abdominal pain constipation or dysuria. He has not been able to urinate since this morning. He denies any tobacco use, recreational drug use and no alcohol use. He has helped mainly with history as patient is re sting after receiving Valium. Patient and reports history of vertigo in the past. Reports that it got better with take medication and has never seen physical therapy. also mentioned that they just returned from [place] yesterday. In the ER lab work essentially normal sodium 138 potassium 3.9 BUN 19 creatinine 1.2 glucose 168 troponin negative COVID-19 swab negative CBC within normal limits. EKG obtained which reveals normal sinus rhythm with no ST or T wave changes no atrial fibrillation. Vital signs have been stable in the ER. He was given Reglan 10 mg IV Valium 5 mg IV as well as IV fluids. Head CT revealed no evidence of acute intracranial abnormality small stable focus of hyperattenuation in the left frontal lobe at site of prior gliosis has some mild record vascular ischemic disease and age-related changes. Chest x-ray revealed hyperinflation and chronic interstitial changes with mild superimposed pulmonary vascular congestion. He will be admitted observation secondary to near syncope and vertigo. abdomen Pain Score (Numeric/FACES): 5 - Related Data Allergies/Adverse Reactions: Allergies Allergy/AdvReac Type Severity Reaction Status Date / Time erythromycin base Allergy Other Verified 01/29/21 13:33 Home Medications: Home Meds . [No Known Home Meds] 01/29/21 [History] Past Medical History HEENT History: Reports: Impaired Vision Cardiovascular History: Reports: Afib. Denies: Blood Clots/VTE/DVT, CAD, Hypertension, [place] Respiratory History: Reports: Other (See Below) Other Respiratory History: "[place] [facility]" 20 years ago Gastrointestinal History: Reports: None. Denies: GERD, GI Bleed Genitourinary History: Reports: None. Denies: Acute Renal Failure, Chronic Renal Insuffiency Musculoskeletal History: Reports: Fracture, Osteoarthritis, Other (See Below) Other Musculoskeletal History: FX "Collar bone X 6 years ago, leg X 2", chronic pain to back Neurological History: Reports: Migraines, Vertigo, Other (See Below) Other Neuro History: Occular Migraines Psychiatric History: Reports: None Endocrine/Metabolic History: Reports: None Hematologic History: Reports: Other (See Below) Other Hematologic History: Previous anticoagulation therapy for history of A- Fib. Immunologic History: Reports: None Oncologic (Cancer) History: Reports: None Dermatologic History: Reports: None - Infectious Disease History Infectious Disease History: Reports: Chicken Pox - Past Surgical History Head Surgeries/Procedures: Reports: None HEENT Surgical History: Reports: None, Oral Surgery, Tonsillectomy Cardiovascular Surgical History: Reports: None Musculoskeletal Surgical History: Reports: None Social & Family History - Family History Family Medical History: No Pertinent Family History - Tobacco Use Tobacco Use Status *Q: Never Tobacco User - Caffeine Use Caffeine Use: Reports: None - Alcohol Use Alcohol Use History: No - Recreational Drug Use Recreational Drug Use: No - Living Situation & Occupation Living situation: Reports: Occupation: Employed ([employer]) H&P Review of Systems - Review of Systems: Review Of Systems: See Below General: Reports: Weakness. Denies: Fever, Chills HEENT: Reports: Sore Throat (from vomiting), Vertigo. Denies: Ear Pain (or popping), Headaches, Sinus Congestion, Visual Changes Pulmonary: Reports: No Symptoms. Denies: Shortness of Breath Cardiovascular: Reports: Lightheadedness, Syncope (near syncope). Denies: Chest Pain, Edema Gastrointestinal: Reports: No Symptoms. Denies: Abdominal Pain, Black Stool, Bloody Stool, Nausea, Vomiting Genitourinary: Reports: No Symptoms. Denies: Dysuria, Frequency, Burning Musculoskeletal: Reports: No Symptoms Skin: Reports: No Symptoms Psychiatric: Reports: No Symptoms Neurological: Reports: No Symptoms Hematologic/Lymphatic: Reports: No Symptoms Immunologic: Reports: No Symptoms Exam - Exam Exam: See Below - Vital Signs Vital Signs: Last Vital Signs Temp 96.6 F L 01/29/21 10:25 Pulse 79 01/29/21 12:05 Resp 18 01/29/21 11:36 BP 131/74 01/29/21 12:05 Pulse Ox 92 L 01/29/21 12:05 Weight: 76.657 kg - Exam General: Alert, Oriented, Cooperative HEENT: Conjunctiva Clear, Mucosa Moist & [place], Posterior Pharynx Clear, Other (patient resistant to moving head as severe nausea and dizzy start. ) Neck: Supple, Trachea Midline Lungs: Clear to Auscultation, Normal Respiratory Effort Cardiovascular: Regular Rate, Regular Rhythm, Normal S1, Normal S2. No: Irregular Rhythm GI/Abdominal Exam: Normal Bowel Sounds, Soft, Non-Tender Extremities: Normal Inspection, Normal Range of Motion, Non-Tender, No Pedal Edema Neurological: Strength Equal Bilateral Neuro Extensive - Mental Status: Alert, Oriented x3 Neuro Extensive - Motor, Sensory, Reflexes: CN II-XII Intact Psychiatric: Alert, Normal Affect, Normal Mood - Patient Data Lab Results Last 24 hrs: Laboratory Results - last 24 hr 01/29/21 01/29/21 01/29/21 Range/Units 10:38 10:38 10:38 WBC 8.55 (4.0-11.0) K/uL RBC 4.70 (4.50-5.90) M/uL Hgb 14.8 (13.0-17.0) g/dL Hct 42.9 (38.0-50.0) % MCV 91.3 (80.0-98.0) fL MCH 31.5 (27.0-32.0) pg MCHC 34.5 (31.0-37.0) g/dL RDW Std Deviation 44.1 (28.0-62.0) fl RDW Coeff of Haritha 13 (11.0-15.0) % Plt Count 190 (150-400) K/uL MPV 9.70 (7.40-12.00) fL Neut % (Auto) 78.2 (48.0-80.0) % Lymph % (Auto) 15.9 L (16.0-40.0) % [place] % (Auto) 4.8 (0.0-15.0) % Eos % (Auto) 0.9 (0.0-7.0) % Baso % (Auto) 0.2 (0.0-1.5) % Neut # (Auto) 6.7 H (1.4-5.7) K/uL Lymph # (Auto) 1.4 (0.6-2.4) K/uL [place] # (Auto) 0.4 (0.0-0.8) K/uL Eos # (Auto) 0.1 (0.0-0.7) K/uL Baso # (Auto) 0.0 (0.0-0.1) K/uL Nucleated RBC % 0.0 /100WBC Nucleated RBCs # 0 K/uL INR 1.28 Sodium 138 (136-148) mmol/L Potassium 3.9 (3.5-5.1) mmol/L Chloride 103 (98-107) mmol/L Carbon Dioxide 25.7 (21.0-32.0) mmol/L BUN 19 H (7.0-18.0) mg/dL Creatinine 1.2 (0.8-1.3) mg/dL Est Cr Clr Drug Dosing 68.32 mL/min Estimated GFR (MDRD) > 60.0 ml/min Glucose 168 H (74-106) mg/dL Calcium 8.5 (8.5-10.1) mg/dL Total Bilirubin 0.7 (0.2-1.0) mg/dL AST 25 (15-37) IU/L ALT 50 (14-63) IU/L Alkaline Phosphatase 43 L (46-116) U/L Creatine Kinase 38 (26-308) U/L Troponin I < 0.050 (0.000-0.056) ng/mL Total Protein 6.8 (6.4-8.2) g/dL Albumin 3.4 (3.4-5.0) g/dL Globulin 3.4 (2.6-4.0) g/dL Albumin/Globulin Ratio 1.0 (0.9-1.6) SARS-CoV-2 RNA (ALEX) (NEGATIVE) 01/29/21 Range/Units 11:00 WBC (4.0-11.0) K/uL RBC (4.50-5.90) M/uL Hgb (13.0-17.0) g/dL Hct (38.0-50.0) % MCV (80.0-98.0) fL MCH (27.0-32.0) pg MCHC (31.0-37.0) g/dL RDW Std Deviation (28.0-62.0) fl RDW Coeff of Haritha (11.0-15.0) % Plt Count (150-400) K/uL MPV (7.40-12.00) fL Neut % (Auto) (48.0-80.0) % Lymph % (Auto) (16.0-40.0) % [place] % (Auto) (0.0-15.0) % Eos % (Auto) (0.0-7.0) % Baso % (Auto) (0.0-1.5) % Neut # (Auto) (1.4-5.7) K/uL Lymph # (Auto) (0.6-2.4) K/uL [place] # (Auto) (0.0-0.8) K/uL Eos # (Auto) (0.0-0.7) K/uL Baso # (Auto) (0.0-0.1) K/uL Nucleated RBC % /100WBC Nucleated RBCs # K/uL INR Sodium (136-148) mmol/L Potassium (3.5-5.1) mmol/L Chloride (98-107) mmol/L Carbon Dioxide (21.0-32.0) mmol/L BUN (7.0-18.0) mg/dL Creatinine (0.8-1.3) mg/dL Est Cr Clr Drug Dosing mL/min Estimated GFR (MDRD) ml/min Glucose (74-106) mg/dL Calcium (8.5-10.1) mg/dL Total Bilirubin (0.2-1.0) mg/dL AST (15-37) IU/L ALT (14-63) IU/L Alkaline Phosphatase (46-116) U/L Creatine Kinase (26-308) U/L Troponin I (0.000-0.056) ng/mL Total Protein (6.4-8.2) g/dL Albumin (3.4-5.0) g/dL Globulin (2.6-4.0) g/dL Albumin/Globulin Ratio (0.9-1.6) SARS-CoV-2 RNA (ALEX) NEGATIVE (NEGATIVE) Result Diagrams: 01/29/21 10:38 01/29/21 10:38 Sepsis Event Note - Evaluation Sepsis Screening Result: No Definite Risk - Focused Exam Vital Signs: Vital Signs Temp Pulse Resp BP Pulse Ox 01/29/21 12:05 79 131/74 92 L 01/29/21 11:36 82 18 118/62 90 L 01/29/21 11:22 70 133/70 93 L 01/29/21 10:25 96.6 F L 74 16 153/91 H 96 - Problem List (1) Near syncope SNOMED Code(s): 149279867 ICD Code: R55 - SYNCOPE AND COLLAPSE Status: Acute Current Visit: Yes (2) Vertigo SNOMED Code(s): 243121383 ICD Code: R42 - DIZZINESS AND GIDDINESS Status: Acute Current Visit: Yes (3) Nausea & vomiting SNOMED Code(s): 77933218 ICD Code: R11.2 - NAUSEA WITH VOMITING, UNSPECIFIED Status: Acute Current Visit: Yes (4) Atrial fibrillation SNOMED Code(s): 56240492 ICD Code: I48.91 - UNSPECIFIED ATRIAL FIBRILLATION Status: Chronic Priority: Medium Current Visit: No Qualifiers: Atrial fibrillation type: paroxysmal Qualified Code(s): I48.0 - Paroxysmal atrial fibrillation (5) Ocular migraine Status: Chronic Current Visit: Yes Problem List Initiated/Reviewed/Updated: Yes Orders Last 24hrs: Active Orders 24 hr Category Date Time Status Admission Status [Patient Status] [ADT] Stat ADT 01/29/21 12:08 Active EKG Documentation Completion [RC] STAT Care 01/29/21 10:25 Active Orthostatic Vital Signs [RC] ASDIRECTED Care 01/29/21 12:16 Active PT Evaluation and Treatment [CONS] Stat Cons 01/29/21 12:15 Ordered UA RFX RADHA AND CULT IF INDIC [URIN] Stat Lab 01/29/21 10:25 Ordered Lactated Ringers [Ringers, Lactated] 1,000 ml Med 01/29/21 10:30 Active IV ASDIRECTED Sodium Chloride 0.9% [Saline Flush] Med 01/29/21 10:25 Active 10 ml FLUSH ASDIRECTED PRN Sodium Chloride 0.9% [Saline Flush] Med 01/29/21 10:25 Active 2.5 ml FLUSH ASDIRECTED PRN Saline Lock Insert [OM.PC] Stat Oth 01/29/21 10:25 Ordered Medication Orders Lactated Ringer's (Ringers, Lactated) 1,000 mls @ 150 mls/hr IV ASDIRECTED SEGUN Last Admin: 01/29/21 10:41 Dose: 150 mls/hr Documented by: THEERI Sodium Chloride (Sodium Chloride 0.9% 10 Ml Syringe) 10 ml FLUSH ASDIRECTED PRN PRN Reason: Keep Vein Open Last Admin: 01/29/21 10:39 Dose: 10 ml Documented by: THEERI Sodium Chloride (Sodium Chloride 0.9% 2.5 Ml Syringe) 2.5 ml FLUSH ASDIRECTED PRN PRN Reason: Keep Vein Open Last Admin: 01/29/21 10:40 Dose: 2.5 ml Documented by: JORGE A Assessment/Plan Comment:: This 65-year-old male admitted with vertigo near syncope and nausea vomiting. 1. Near syncope -Likely secondary to vertigo. -Unable to obtain orthostatics at this time due to severe dizziness. -Monitor on telemetry for any cardiac arrhythmias. -Troponin negative -Consult physical therapy 2. Vertigo with intractable nausea vomiting -Consider BPPV, possible migraine. - Consult physical therapy for vestibular evaluation. -Zofran as needed -Does have history of migraines especially ocular migraines at this point he does not feel migraine is happening. -Was given Reglan and Valium in the ER we will also give Toradol IV now VTE prophylaxis SCDs and ambulation CODE STATUS: Full code Dispo: 1 to 2 days Plan discussed with patient as well as at bedside. - Mortality Measure Prognosis:: Good
[2021-01-29] MEDS ORDERED: Acetaminophen 325 MG Tab PO PRN (13:13)
[2021-01-29] MEDS ORDERED: Promethazine 25 MG/ML SDV IM PRN (13:15)
[2021-01-29] MEDS ORDERED: Ketorolac 30 MG/ML SDV IVPUSH ONE (13:17)
[2021-01-29] MEDS: Ondansetron 4 MG/2 ML SDV IVPUSH PRN ×2 (14:29→20:37)
[2021-01-29] MEDS: Lactated Ringers 1,000 ML IV SCH ×2 (14:31→18:07)
[2021-01-29] MEDS ORDERED: Meclizine 25 MG Tab PO ONE (15:32)
[2021-01-30] MEDS: Lactated Ringers 1,000 ML IV SCH ×3 (02:29→10:48)
[2021-01-30 06:08] LABS: BLOOD UREA NITROGEN,BUN 15 mg/dL (7.0-18.0); CARBON DIOXIDE,CO2 27.8 mmol/L (21.0-32.0); CHLORIDE,CL 104 mmol/L (98-107); GLUCOSE RANDOM 91 mg/dL (74-106); POTASSIUM,K 3.8 mmol/L (3.5-5.1); SODIUM,NA 138 mmol/L (136-148)
[2021-01-30 12:29] VITALS: BP 141/76; PULSE 69
--- NOTE | 2021-01-30 13:40 | PCM.DCSUM1 ---
Discharge Summary - Hospital Course Free Text/Narrative:: 65-year-old male with past medical history of atrial fibrillation currently not anticoagulated or rate controlled, admitted for BPPV and near syncopal episode. Patient presented to the emergency department with complaint of dizziness and vomiting that began the morning of admission. Patient states that he does have a history of dizziness, difficulty with postural head movements, and vertigo episodes. Patient also states that he had COVID-19 vaccine 1 week ago and states body ache with left arm pain and numbness tingling sensation in his left fingertips. Patient was given Reglan and Valium in the ER with no relief. Patient has significant difficulty with even left and right head movements on admission and was not unable to walk. Lab work done in the ER was normal, EKG normal sinus rhythm no atrial fibrillation. Head CT negative for acute int racranial abnormality. Morning of discharge patient symptoms had completely resolved. Patient states that he was able to get out of bed and walk to the bathroom 2-3 times without dizziness without lightheadedness without nausea without vomiting. Patient denied chest pain, shortness of breath fever, chills. Patient was scheduled for MRI brain, MRA head and neck but will hold off on imaging until patient sees PCP. Patient discharged with meclizine 25 mg p.o. daily x7 tabs - Discharge Data Discharge Date: 01/30/21 Discharge Disposition: Home, Self-Care 01 Condition: Good - Referral to Home Health Primary Care Physician: PCP None - Patient Summary/Data Consults: Consultations 01/29/21 12:15 PT Evaluation and Treatment [CONS] Stat - Patient Instructions Diet: Usual Diet as Tolerated Showering/Bathing: March Shower Notify Provider of: Nausea and/or Vomiting - Discharge Plan Prescriptions/Med Rec: Meclizine [Antivert] 25 mg PO DAILY PRN #7 tab PRN Reason: Dizziness Home Medications: Home Meds Meclizine [Antivert] 25 mg PO DAILY PRN #7 tab 01/30/21 [Rx] Patient Handouts: Meclizine tablets or capsules, Vertigo, [id number], Recurrent Migraine Headache, [id number], Syncope, [id number] Forms: ED Department Discharge Referrals: Sina Bullard MD [Physician] - ( ) - Discharge Summary/Plan Comment DC Time >30 min.: Yes - General Info Subjective Update: Patient states no dizziness, headaches, lightheadedness, nausea, vomiting, dental pain, chest pain, shortness of breath. Patient states he feels much better would like to go home this afternoon. - Review of Systems General: Denies: Fever, Chills HEENT: Denies: Headaches, Visual Changes Pulmonary: Denies: Shortness of Breath, Cough Cardiovascular: Denies: Chest Pain Gastrointestinal: Denies: Abdominal Pain, Nausea, Vomiting Neurological: Denies: Confusion, Dizziness, Headache, Syncope, Trouble Speaking, Difficulty Walking Psychiatric: Denies: Confusion - Patient Data Vitals - Most Recent: Last Vital Signs Temp 98 F 01/30/21 12:00 Pulse 69 01/30/21 12:00 Resp 16 01/30/21 12:00 BP 141/76 H 01/30/21 12:00 Pulse Ox 93 L 01/30/21 12:00 Weight - Most Recent: 169 lb I&O - Last 24 hours: Intake & Output 01/29/21 01/30/21 01/30/21 22:59 06:59 14:59 Intake Total 350 069 9422 Output Total 600 400 Balance 587 263 601 Lab Results - Last 24 hrs: Laboratory Results - last 24 hr 01/29/21 01/30/21 01/30/21 Range/Units 20:00 05:20 05:20 WBC 9.59 (4.0-11.0) K/uL RBC 4.31 L (4.50-5.90) M/uL Hgb 13.4 (13.0-17.0) g/dL Hct 39.5 (38.0-50.0) % MCV 91.6 (80.0-98.0) fL MCH 31.1 (27.0-32.0) pg MCHC 33.9 (31.0-37.0) g/dL RDW Std Deviation 44.2 (28.0-62.0) fl RDW Coeff of Haritha 13 (11.0-15.0) % Plt Count 222 (150-400) K/uL MPV 9.90 (7.40-12.00) fL Neut % (Auto) 70.9 (48.0-80.0) % Lymph % (Auto) 21.3 (16.0-40.0) % [place] % (Auto) 7.2 (0.0-15.0) % Eos % (Auto) 0.4 (0.0-7.0) % Baso % (Auto) 0.2 (0.0-1.5) % Neut # (Auto) 6.8 H (1.4-5.7) K/uL Lymph # (Auto) 2.0 (0.6-2.4) K/uL [place] # (Auto) 0.7 (0.0-0.8) K/uL Eos # (Auto) 0.0 (0.0-0.7) K/uL Baso # (Auto) 0.0 (0.0-0.1) K/uL Nucleated RBC % 0.0 /100WBC Nucleated RBCs # 0 K/uL Sodium 138 (136-148) mmol/L Potassium 3.8 (3.5-5.1) mmol/L Chloride 104 (98-107) mmol/L Carbon Dioxide 27.8 (21.0-32.0) mmol/L BUN 15 (7.0-18.0) mg/dL Creatinine 1.0 (0.8-1.3) mg/dL Est Cr Clr Drug Dosing 80.92 mL/min Estimated GFR (MDRD) > 60.0 ml/min Glucose 91 (74-106) mg/dL Calcium 8.5 (8.5-10.1) mg/dL Magnesium 1.9 (1.8-2.4) mg/dL Urine Color YELLOW Urine Appearance CLEAR Urine pH 7.0 (5.0-8.0) Ur Specific [place] 1.020 (1.001-1.035) Urine Protein NEGATIVE (NEGATIVE) mg/dL Urine Glucose (UA) NEGATIVE (NEGATIVE) mg/dL Urine Ketones 15 H (NEGATIVE) mg/dL Urine Occult Blood NEGATIVE (NEGATIVE) Urine Nitrite NEGATIVE (NEGATIVE) Urine Bilirubin NEGATIVE (NEGATIVE) Urine Urobilinogen 1.0 (<2.0) EU/dL Ur Leukocyte Esterase NEGATIVE (NEGATIVE) Med Orders - Current: Current Medications Discontinued Medications Acetaminophen (Acetaminophen 325 Mg Tab) 650 mg PO Q4H PRN PRN Reason: Pain Last Admin: 01/30/21 02:33 Dose: 650 mg Documented by: Diazepam (Diazepam 10 Mg/2 Ml Syringe) 5 mg IVPUSH ONETIME ONE Stop: 01/29/21 11:28 Last Admin: 01/29/21 11:34 Dose: 5 mg Documented by: Lactated Ringer's (Ringers, Lactated) 1,000 mls @ 150 mls/hr IV ASDIRECTED SEGUN Last Admin: 01/29/21 10:41 Dose: 150 mls/hr Documented by: Lactated Ringer's (Ringers, Lactated) 1,000 mls @ 125 mls/hr IV Q8H SEGUN Last Admin: 01/30/21 10:48 Dose: 125 mls/hr Documented by: Ketorolac Tromethamine (Ketorolac 30 Mg/Ml Sdv) 30 mg IVPUSH ONETIME ONE Stop: 01/29/21 13:18 Last Admin: 01/29/21 14:27 Dose: 30 mg Documented by: Meclizine HCl (Meclizine 25 Mg Tab) 25 mg PO ONETIME ONE Stop: 01/29/21 15:33 Last Admin: 01/29/21 16:11 Dose: 25 mg Documented by: Metoclopramide HCl (Metoclopramide 10 Mg/2 Ml Sdv) 10 mg IV ONETIME ONE Stop: 01/29/21 10:29 Last Admin: 01/29/21 10:39 Dose: 10 mg Documented by: Ondansetron HCl (Ondansetron 4 Mg/2 Ml Sdv) 4 mg IVPUSH Q4H PRN PRN Reason: Nausea Last Admin: 01/29/21 20:37 Dose: 4 mg Documented by: Promethazine HCl (Promethazine 25 Mg/Ml Sdv) 25 mg IM Q6H PRN PRN Reason: Nausea Last Admin: 01/29/21 14:53 Dose: 25 mg Documented by: Sodium Chloride (Sodium Chloride 0.9% 10 Ml Syringe) 10 ml FLUSH ASDIRECTED PRN PRN Reason: Keep Vein Open Last Admin: 01/29/21 10:39 Dose: 10 ml Documented by: Sodium Chloride (Sodium Chloride 0.9% 2.5 Ml Syringe) 2.5 ml FLUSH ASDIRECTED PRN PRN Reason: Keep Vein Open Last Admin: 01/29/21 10:40 Dose: 2.5 ml Documented by: Sodium Chloride (Sodium Chloride 0.9% 2.5 Ml Syringe) 2.5 ml FLUSH ASDIRECTED PRN PRN Reason: Keep Vein Open - Exam General: Reports: Alert, Oriented Lungs: Reports: Clear to Auscultation, Normal Respiratory Effort Cardiovascular: Reports: Regular Rate, Regular Rhythm GI/Abdominal Exam: Normal Bowel Sounds, Soft, Non-Tender Extremities: No Pedal Edema Neurological: Reports: Normal Speech, Strength Equal Bilateral, Sensation Intact Psy/Mental Status: Reports: Alert
== END 2021-01-30 12:55 | disposition home or self-care (01) ==
LOC: MW.ED 10:21 → MW.MS 12:29
PROVIDERS: ADMIT Internal Medicine; ATTEND Internal Medicine
DX: R42 Dizziness and giddiness (principal); R55 Syncope and collapse; R11.2 Nausea with vomiting, unspecified; I48.0 Paroxysmal atrial fibrillation; G43.809 Other migraine, not intractable, without status migrainosus; R91.8 Other nonspecific abnormal finding of lung field; Z20.822 Contact with and (suspected) exposure to COVID-19; Z88.8 Allergy status to other drugs, medicaments and biological substances; Z98.890 Other specified postprocedural states
CPT/HCPCS: 36415; 70450; 71045; 80048; 80053; 81003; 82550; 83735; 84484; 85025; 85610; 87635; 93005; 96374; 96375; 99285; A9270; J1885; J2405; J2550; J2765; J3360; J7120; 96372; 96376; G0378; U0002

== ENCOUNTER 2021-09-04 17:46 | Emergency (ER) | payer BC, OTHER ==
--- NOTE | 2021-09-04 17:55 | EDM.PDOC ---
ED HPI GENERAL MEDICAL PROBLEM - General Chief Complaint: Upper Extremity Injury/Pain Stated Complaint: POSSIBLE BROKEN RT THUMB Time Seen by Provider: 09/04/21 17:51 - History of Present Illness INITIAL COMMENTS - FREE TEXT/NARRATIVE: History of present illness: [] Approximately 4:30 PM today grasper that was broken off from the spring crushed his right thumb. He is right-handed. He has pain in the right thumb. Its worse with touching or moving. It is moderately severe and sharp. He took Tylenol for pain just prior to arrival. The patient denies any other injury or illness. Review of systems: As per history of present illness and below otherwise all systems reviewed and negative. Past medical history: As per history of present illness and as reviewed below otherwise noncontributory. Surgical history: As per history of present illness and as reviewed below otherwise noncontributory. Social history: No reported history of drug or alcohol abuse. Family history: As per history of present illness and as reviewed below otherwise noncontributory. Physical exam: Constitutional - well developed, well-nourished and in no acute distress HEENT - normocephalic, no evidence of trauma - external nose and mouth normal - no mass in neck and no JVD - mucosae moist EYES - full EOM, PERRL, no icterus - no evidence of inflammation, injection, or drainage Respiratory - no respiratory distress, equal bilateral expansion Musculoskeletal exquisitely tender distal segment of the right thumb. Small subungual hematoma with an same. Limited range of motion perhaps secondary to pain only. No gross deformity. Otherwise no gross deformity of long bones or joints - no tenderness, swelling or edema Neurologic - Alert and oriented times four - CN II-XII grossly intact - motor sensory and coordination symmetrically normal Psychiatric - appropriate mood and affect with normal thought content Hematologic - No petechiae or purpura - mucosa appropriate color and sclera not pale - normal nail bed color and refill Integument - no rash or evidence of trauma - normal turgor Diagnostics: [] Therapeutics: [] Impression: [] Plan: [] Definitive disposition and diagnosis as appropriate pending reevaluation and review of above. right thumb Pain Score (Numeric/FACES): 10 - Related Data Allergies Allergy/AdvReac Type Severity Reaction Status Date / Time erythromycin base Allergy Other Verified 09/04/21 17:48 Home Meds: Home Meds Acetaminophen/oxyCODONE [Percocet 325-5 MG] 1 - 2 each PO Q4HR PRN #12 tab 09/04/21 [Rx] Past Medical History HEENT History: Reports: Impaired Vision Cardiovascular History: Reports: Afib Respiratory History: Reports: Other (See Below) Other Respiratory History: "[place] [facility]" 20 years ago Gastrointestinal History: Reports: None Genitourinary History: Reports: None Musculoskeletal History: Reports: Fracture, Osteoarthritis, Other (See Below) Other Musculoskeletal History: FX "Collar bone X 6 years ago, leg X 2", chronic pain to back Neurological History: Reports: Migraines, Vertigo, Other (See Below) Other Neuro History: Occular Migraines Psychiatric History: Reports: None Endocrine/Metabolic History: Reports: None Hematologic History: Reports: Other (See Below) Other Hematologic History: Previous anticoagulation therapy for history of A- Fib. Immunologic History: Reports: None Oncologic (Cancer) History: Reports: None Dermatologic History: Reports: None - Infectious Disease History Infectious Disease History: Reports: Chicken Pox - Past Surgical History Head Surgeries/Procedures: Reports: None HEENT Surgical History: Reports: None, Oral Surgery, Tonsillectomy Cardiovascular Surgical History: Reports: None GI Surgical History: Reports: Appendectomy Neurological Surgical History: Reports: None Musculoskeletal Surgical History: Reports: None Social & Family History - Family History Family Medical History: No Pertinent Family History - Tobacco Use Tobacco Use Status *Q: Never Tobacco User Second Hand Smoke Exposure: No - Caffeine Use Caffeine Use: Reports: None - Recreational Drug Use Recreational Drug Use: No - Living Situation & Occupation Living situation: Reports: Occupation: Employed ([employer]) Review of Systems - Review of Systems Review Of Systems: Comprehensive ROS is negative, except as noted in HPI. ED EXAM, GENERAL - Physical Exam Exam: See Below Free Text/Narrative:: My physical exam is in the HPI Course - Vital Signs Last Recorded V/S: Last Vital Signs Temp 35.2 C L 09/04/21 17:48 Pulse 76 09/04/21 17:48 Resp 18 09/04/21 17:48 BP 141/87 H 09/04/21 17:48 Pulse Ox 95 09/04/21 17:48 - Orders/Labs/Meds Orders: Active Orders 24 hr Category Date Time Status Hand Comp Min 3V Rt [CR] Stat Exams 09/04/21 17:53 Taken DME for Discharge [COMM] Stat Oth 09/04/21 18:23 Ordered - Re-Assessments/Exams Free Text/Narrative Re-Assessment/Exam: 09/04/21 18:24 Thumb splint placed and then the patient had neurovascular structures verified intact. Splint was for 4 weeks and is to keep him from moving the nondisplaced fracture of the thumb and causing displacement and needing surgery. Departure - Departure Time of Disposition: 18:40 Disposition: Home, Self-Care 01 Condition: Good Clinical Impression: Nondisplaced fracture of distal phalanx of right thumb, initial encounter for closed fracture - Discharge Information Prescriptions: Acetaminophen/oxyCODONE [Percocet 325-5 MG] 1 - 2 each PO Q4HR PRN #12 tab PRN Reason: Pain (Severe 7-10) Instructions: Thumb Fracture, Cast or Splint Care, Adult Referrals: Sina Bullard MD [Primary Care Provider] - Peter Guerrier MD [Ordering Only Provider] - Forms: ED Department Discharge Additional Instructions: Ice and elevate. If necessary you could see the hand doctor especially if there is more pain if there is any cracking popping or abnormal movement of the thumb. The hand doctors and [place]. [facility] - Primary Care [address] [place] [address] [place] [address] The following information is given to patients seen in the emergency department who are being discharged to home. This information is to outline your options for follow-up care. We provide all patients seen in our emergency department with a follow-up referral. The need for follow-up, as well as the timing and circumstances, are variable depending upon the specifics of your emergency department visit. If you don't have a primary care physician on staff, we will provide you with a referral. We always advise you to contact your personal physician following an emergency department visit to inform them of the circumstance of the visit and for follow-up with them and/or the need for any referrals to a consulting specialist. The emergency department will also refer you to a specialist when appropriate. This referral assures that you have the opportunity for follow-up care with a specialist. All of these measure are taken in an effort to provide you with optimal care, which includes your follow-up. Under all circumstances we always encourage you to contact your private physician who remains a resource for coordinating your care. When calling for follow-up care, please make the office aware that this follow-up is from your recent emergency room visit. If for any reason you are refused follow-up, please contact the [facility] Emergency Department at and asked to speak to the emergency department charge nurse. Sepsis Event Note (ED) - Evaluation Sepsis Screening Result: No Definite Risk - Focused Exam Vital Signs: Vital Signs Temp Pulse Resp BP Pulse Ox 09/04/21 17:48 35.2 C L 76 18 141/87 H 95 - My Orders Last 24 Hours: My Active Orders 09/04/21 17:53 Hand Comp Min 3V Rt [CR] Stat 09/04/21 18:23 DME for Discharge [COMM] Stat - Assessment/Plan Last 24 Hours: My Active Orders 09/04/21 17:53 Hand Comp Min 3V Rt [CR] Stat 09/04/21 18:23 DME for Discharge [COMM] Stat
--- NOTE | 2021-09-04 19:05 | CR ---
Indication: Right thumb injury. Technique: Three views of the right hand. Comparison: March 07, 2017. Findings: Progression of the degenerative change of the right hand is identified. This is greatest at the 1st carpometacarpal joint space and lateral breast. A fracture of the base of the distal phalanx of the right thumb is identified. Impression: Progression of the degenerative change. Subtle nondisplaced fracture of the base of the distal phalanx of the right thumb Dictated by Shannon Biggs MD @ 09/04/2021 7:04:23 PM (Electronically Signed)
[2021-09-04 19:08] VITALS: BP 130/78; PULSE 72
== END 2021-09-04 19:06 | disposition home or self-care (01) ==
LOC: MW.ED 17:46
DX: S62.524A Nondisplaced fracture of distal phalanx of right thumb, initial encounter for closed fracture (principal); I48.91 Unspecified atrial fibrillation; Z88.1 Allergy status to other antibiotic agents; W23.0XXA Caught, crushed, jammed, or pinched between moving objects, initial encounter
CPT/HCPCS: 29125; 73130-26-RT; 73130-RT; 99283-25

== ENCOUNTER 2021-12-12 04:41 | Emergency (ER) | payer BC ==
[2021-12-12 04:57] VITALS: BP 116/75; PULSE 71
== END 2021-12-12 05:08 | disposition home or self-care (01) ==
LOC: MW.ED 04:41
DX: H60.502 Unspecified acute noninfective otitis externa, left ear (principal)
CPT/HCPCS: 99282

== ENCOUNTER 2024-06-03 12:47 | Emergency (ER) | payer BC ==
[2024-06-03 14:08] LABS: BASOPHILS ABSOLUTE AUTO 0.03 K/uL (0.00-0.20); BASOPHILS PERCENT AUTO 0.4 % (0.0-1.0); EOSINOPHILS ABSOLUTE AUTO 0.08 K/uL (0.00-0.45); HEMATOCRIT 41.8 % (42.0-52.0); HEMOGLOBIN 14.7 g/dL (14.0-18.0); IMMATURE GRAN ABSOLUTE AUTO 0.02 K/uL (0.00-0.05); IMMATURE GRAN PERCENT AUTO 0.2 % (0.0-0.4); LYMPHOCYTES ABSOLUTE AUTO 1.65 K/uL (1.00-4.80); LYMPHOCYTES PERCENT AUTO 19.6 % (24.0-44.0); MEAN CORPUSCULAR HEMOGLOBIN 31.1 pg (28.0-32.0); MEAN CORPUSCULAR HGB CONC 35.2 g/dL (32.0-36.0); MEAN CORPUSCULAR VOLUME 88.4 fL (83.0-99.0); MEAN PLATELET VOLUME 9.5 fL (9.4-12.4); MONOCYTES ABSOLUTE AUTO 0.46 K/uL (0.00-0.80); MONOCYTES PERCENT AUTO 5.5 % (0.0-8.0); NEUTROPHILS ABSOLUTE AUTO 6.18 K/uL (1.80-7.70); NEUTROPHILS PERCENT AUTO 73.3 % (41.0-71.0); PLATELET COUNT,PLT 243 K/uL (150-400); RED BLOOD CELL COUNT 4.73 M/uL (4.52-5.90); WHITE BLOOD CELL COUNT,WBC 8.42 K/uL (3.9-11.3)
[2024-06-03 14:20] LABS: A/G RATIO 1.3 (0.9-1.6); ALBUMIN 4.1 g/dL (3.4-5.0); BILIRUBIN TOTAL 0.9 mg/dL (0.2-1.0); CALCIUM 9.1 mg/dL (8.5-10.1); CARBON DIOXIDE,CO2 25.1 mmol/L (21.0-32.0); CREATININE 1.1 mg/dL (0.8-1.3); EST CRCL DRUG DOSING (CG) 71.07 mL/min; POTASSIUM,K 4.1 mmol/L (3.5-5.1); PROTEIN TOTAL,TP 7.2 g/dL (6.4-8.2)
[2024-06-03 14:24] LABS: INR 1.14 (0.86-1.11)
[2024-06-03 18:16] VITALS: BP 140/83; PULSE 63
== END 2024-06-03 18:16 | disposition home or self-care (01) ==
LOC: MW.ED 12:47
DX: R55 Syncope and collapse (principal); Z86.16 Personal history of COVID-19; Z75.8 Other problems related to medical facilities and other health care
CPT/HCPCS: 36415; 71045; 71045-26; 71046; 71046-26; 80053; 84484; 85025; 85610; 93005; 99284

== ENCOUNTER 2024-07-15 15:16 | Emergency (ER) | payer BC, MEDICARE ==
[2024-07-15] MEDS ORDERED: Sodium Chloride 0.9% 2.5 ML Syringe FLUSH PRN (15:23)
[2024-07-15] MEDS ORDERED: Sodium Chloride 0.9% 10 ML Syringe FLUSH PRN (15:23)
[2024-07-15] MEDS: Sodium Chloride 0.9% 1,000 ML IV ONE (15:47)
[2024-07-15 16:01] LABS: BASOPHILS ABSOLUTE AUTO 0.04 K/uL (0.00-0.20); BASOPHILS PERCENT AUTO 0.5 % (0.0-1.0); EOSINOPHILS ABSOLUTE AUTO 0.15 K/uL (0.00-0.45); HEMATOCRIT 40.1 % (42.0-52.0); HEMOGLOBIN 14.5 g/dL (14.0-18.0); IMMATURE GRAN ABSOLUTE AUTO 0.06 K/uL (0.00-0.05); IMMATURE GRAN PERCENT AUTO 0.8 % (0.0-0.4); LYMPHOCYTES ABSOLUTE AUTO 1.78 K/uL (1.00-4.80); LYMPHOCYTES PERCENT AUTO 24.2 % (24.0-44.0); MEAN CORPUSCULAR HEMOGLOBIN 31.7 pg (28.0-32.0); MEAN CORPUSCULAR HGB CONC 36.2 g/dL (32.0-36.0); MEAN CORPUSCULAR VOLUME 87.6 fL (83.0-99.0); MEAN PLATELET VOLUME 9.3 fL (9.4-12.4); MONOCYTES PERCENT AUTO 6.8 % (0.0-8.0); NEUTROPHILS ABSOLUTE AUTO 4.82 K/uL (1.80-7.70); NEUTROPHILS PERCENT AUTO 65.7 % (41.0-71.0); PLATELET COUNT,PLT 233 K/uL (150-400); RED BLOOD CELL COUNT 4.58 M/uL (4.52-5.90); WHITE BLOOD CELL COUNT,WBC 7.35 K/uL (3.9-11.3)
[2024-07-15] MEDS: Diltiazem 25 MG/5 ML SDV IVPUSH ONE ×2 (16:17→17:35)
[2024-07-15 16:36] LABS: A/G RATIO 1.3 (0.9-1.6); ALBUMIN 3.9 g/dL (3.4-5.0); BILIRUBIN TOTAL 0.6 mg/dL (0.2-1.0); CALCIUM 9.5 mg/dL (8.5-10.1); CARBON DIOXIDE,CO2 26.2 mmol/L (21.0-32.0); CREATININE 1.4 mg/dL (0.8-1.3); EST CRCL DRUG DOSING (CG) 54.2 mL/min; POTASSIUM,K 3.6 mmol/L (3.5-5.1)
[2024-07-15 18:09] VITALS: BP 116/75; PULSE 129
[2024-07-15] MEDS: Enoxaparin 100 MG/1 ML Syringe SUBCUT ONE (18:52)
[2024-07-15] MEDS: Aspirin 81 MG Tab.Chew PO ONE (18:53)
[2024-07-15] MEDS: Morphine 4 MG/ML Syringe IVPUSH ONE (19:08)
== END 2024-07-15 19:00 ==
LOC: MW.ED 15:16
DX: I21.4 Non-ST elevation (NSTEMI) myocardial infarction (principal); I48.0 Paroxysmal atrial fibrillation; Z88.1 Allergy status to other antibiotic agents; Z75.8 Other problems related to medical facilities and other health care; Z90.49 Acquired absence of other specified parts of digestive tract
CPT/HCPCS: 36415; 71045; 80053; 83880; 84484; 85025; 93005; 96361; 96372; 96374; 96376; 99285; A9270; J1650; J3490; J7030; 93010

== ENCOUNTER 2024-07-17 13:34 | Emergency (ER) | payer MEDICARE ==
[2024-07-17] MEDS: Sodium Chloride 0.9% 1,000 ML IV ONE (14:15)
[2024-07-17] MEDS: Ondansetron 4 MG/2 ML SDV IVPUSH ONE (14:17)
[2024-07-17 14:39] LABS: BASOPHILS ABSOLUTE AUTO 0.04 K/uL (0.00-0.20); BASOPHILS PERCENT AUTO 0.5 % (0.0-1.0); EOSINOPHILS ABSOLUTE AUTO 0.09 K/uL (0.00-0.45); EOSINOPHILS PERCENT AUTO 1.2 % (0.0-6.0); HEMATOCRIT 40.2 % (42.0-52.0); HEMOGLOBIN 14.2 g/dL (14.0-18.0); IMMATURE GRAN ABSOLUTE AUTO 0.02 K/uL (0.00-0.05); IMMATURE GRAN PERCENT AUTO 0.3 % (0.0-0.4); LYMPHOCYTES ABSOLUTE AUTO 1.62 K/uL (1.00-4.80); LYMPHOCYTES PERCENT AUTO 22.3 % (24.0-44.0); MEAN CORPUSCULAR HEMOGLOBIN 31.5 pg (28.0-32.0); MEAN CORPUSCULAR HGB CONC 35.3 g/dL (32.0-36.0); MEAN CORPUSCULAR VOLUME 89.1 fL (83.0-99.0); MEAN PLATELET VOLUME 9.5 fL (9.4-12.4); MONOCYTES ABSOLUTE AUTO 0.39 K/uL (0.00-0.80); MONOCYTES PERCENT AUTO 5.4 % (0.0-8.0); NEUTROPHILS ABSOLUTE AUTO 5.12 K/uL (1.80-7.70); NEUTROPHILS PERCENT AUTO 70.3 % (41.0-71.0); PLATELET COUNT,PLT 212 K/uL (150-400); RED BLOOD CELL COUNT 4.51 M/uL (4.52-5.90); WHITE BLOOD CELL COUNT,WBC 7.28 K/uL (3.9-11.3)
[2024-07-17 14:57] LABS: A/G RATIO 1.3 (0.9-1.6); ALBUMIN 3.8 g/dL (3.4-5.0); BILIRUBIN TOTAL 0.6 mg/dL (0.2-1.0); CALCIUM 9.3 mg/dL (8.5-10.1); CARBON DIOXIDE,CO2 25.7 mmol/L (21.0-32.0); CREATININE 1.2 mg/dL (0.8-1.3); EST CRCL DRUG DOSING (CG) 65.56 mL/min; MAGNESIUM 1.9 mg/dL (1.8-2.4); POTASSIUM,K 4.2 mmol/L (3.5-5.1); PROTEIN TOTAL,TP 6.8 g/dL (6.4-8.2)
[2024-07-17 15:04] LABS: INR 1.21 (0.86-1.11); PTT,PARTIAL THROMBOPLSTIN TIME 28.8 SEC (23.9-30.7)
[2024-07-17 17:21] VITALS: BP 132/82; PULSE 70
== END 2024-07-17 17:20 | disposition home or self-care (01) ==
LOC: MW.ED 13:34
DX: R07.9 Chest pain, unspecified (principal); I48.91 Unspecified atrial fibrillation; Z88.0 Allergy status to penicillin; Z75.8 Other problems related to medical facilities and other health care; Z79.899 Other long term (current) drug therapy; Z79.01 Long term (current) use of anticoagulants
CPT/HCPCS: 36415; 71045; 80053; 83690; 83735; 84484; 85025; 85610; 85730; 93005; 96361; 96374; 99285; J2405; J7030; 93010; 99284

== ENCOUNTER 2024-07-22 10:34 | Emergency (ER) | payer MEDICARE ==
[2024-07-22] MEDS ORDERED: Sodium Chloride 0.9% 20 ML SDV IV PRN (10:50)
[2024-07-22] MEDS ORDERED: Sodium Chloride 0.9% 2.5 ML Syringe FLUSH PRN (10:50)
[2024-07-22] MEDS ORDERED: Sodium Chloride 0.9% 10 ML Syringe FLUSH PRN (10:50)
[2024-07-22 11:23] LABS: BASOPHILS ABSOLUTE AUTO 0.04 K/uL (0.00-0.20); BASOPHILS PERCENT AUTO 0.6 % (0.0-1.0); EOSINOPHILS ABSOLUTE AUTO 0.22 K/uL (0.00-0.45); EOSINOPHILS PERCENT AUTO 3.1 % (0.0-6.0); HEMATOCRIT 43.1 % (42.0-52.0); IMMATURE GRAN ABSOLUTE AUTO 0.01 K/uL (0.00-0.05); IMMATURE GRAN PERCENT AUTO 0.1 % (0.0-0.4); LYMPHOCYTES ABSOLUTE AUTO 2.12 K/uL (1.00-4.80); LYMPHOCYTES PERCENT AUTO 29.7 % (24.0-44.0); MEAN CORPUSCULAR HEMOGLOBIN 31.3 pg (28.0-32.0); MEAN CORPUSCULAR HGB CONC 34.8 g/dL (32.0-36.0); MEAN CORPUSCULAR VOLUME 89.8 fL (83.0-99.0); MEAN PLATELET VOLUME 9.3 fL (9.4-12.4); MONOCYTES ABSOLUTE AUTO 0.63 K/uL (0.00-0.80); MONOCYTES PERCENT AUTO 8.8 % (0.0-8.0); NEUTROPHILS ABSOLUTE AUTO 4.11 K/uL (1.80-7.70); NEUTROPHILS PERCENT AUTO 57.7 % (41.0-71.0); PLATELET COUNT,PLT 245 K/uL (150-400); WHITE BLOOD CELL COUNT,WBC 7.13 K/uL (3.9-11.3)
[2024-07-22 11:37] LABS: INR 1.22 (0.86-1.11); PTT,PARTIAL THROMBOPLSTIN TIME 29.9 SEC (23.9-30.7)
[2024-07-22 11:49] LABS: A/G RATIO 1.2 (0.9-1.6); ALBUMIN 3.9 g/dL (3.4-5.0); BILIRUBIN TOTAL 0.7 mg/dL (0.2-1.0); CALCIUM 9.2 mg/dL (8.5-10.1); CARBON DIOXIDE,CO2 32.8 mmol/L (21.0-32.0); CREATININE 1.3 mg/dL (0.8-1.3); EST CRCL DRUG DOSING (CG) 60.52 mL/min; POTASSIUM,K 4.3 mmol/L (3.5-5.1); PROTEIN TOTAL,TP 7.2 g/dL (6.4-8.2)
[2024-07-22] MEDS: Iopamidol 755 MG/ML 500 ML Multipack Bottle IVPUSH STA ×2 (12:33→12:34)
[2024-07-23 07:18] VITALS: BP 134/87; PULSE 61
== END 2024-07-22 13:49 | disposition home or self-care (01) ==
LOC: MW.ED 10:34
DX: R20.2 Paresthesia of skin (principal); I48.91 Unspecified atrial fibrillation; Z79.01 Long term (current) use of anticoagulants; Z79.82 Long term (current) use of aspirin; Z88.1 Allergy status to other antibiotic agents; Z79.899 Other long term (current) drug therapy; Z75.8 Other problems related to medical facilities and other health care
CPT/HCPCS: 36415; 70450; 70496; 70498; 72125; 80053; 84484; 85025; 85610; 85730; 99284; Q9967

== ENCOUNTER 2025-09-18 13:37 | Emergency (ER) | payer MEDICARE ==
[2025-09-18] MEDS: Ondansetron 4 MG/2 ML SDV ONE (13:51)
[2025-09-18] MEDS: droPERidol 2.5 MG/ML SDV IVPUSH ONE (13:57)
[2025-09-18 14:00] LABS: BASOPHILS ABSOLUTE AUTO 0.05 K/uL (0.00-0.20); BASOPHILS PERCENT AUTO 0.4 % (0.0-1.0); EOSINOPHILS ABSOLUTE AUTO 0.04 K/uL (0.00-0.45); EOSINOPHILS PERCENT AUTO 0.3 % (0.0-6.0); IMMATURE GRAN ABSOLUTE AUTO 0.05 K/uL (0.00-0.05); IMMATURE GRAN PERCENT AUTO 0.4 % (0.0-0.4); LYMPHOCYTES ABSOLUTE AUTO 2.43 K/uL (1.00-4.80); LYMPHOCYTES PERCENT AUTO 19.2 % (24.0-44.0); MEAN PLATELET VOLUME 9.4 fL (9.4-12.4); MONOCYTES ABSOLUTE AUTO 0.54 K/uL (0.00-0.80); MONOCYTES PERCENT AUTO 4.3 % (0.0-8.0); NEUTROPHILS ABSOLUTE AUTO 9.53 K/uL (1.80-7.70); NEUTROPHILS PERCENT AUTO 75.4 % (41.0-71.0); NRBC ABSOLUTE 0.00 K/uL (0.00-0.02); NRBC PERCENT 0.0 /100WBC (0.0-0.2); PLATELET COUNT,PLT 280 K/uL (150-400); RED BLOOD CELL COUNT 4.92 M/uL (4.52-5.90); WHITE BLOOD CELL COUNT,WBC 12.64 K/uL (3.9-11.3)
[2025-09-18] MEDS: Lactated Ringers 1,000 ML IV SCH (14:01)
[2025-09-18] MEDS: Ondansetron 4 MG/2 ML SDV IVPUSH ONE (14:02)
[2025-09-18] MEDS: droPERidol 2.5 MG/ML SDV ONE (14:02)
[2025-09-18 14:13] LABS: A/G RATIO 1.2 (0.9-1.6); ALANINE AMINOTRANSFERASE,ALT 23.0 IU/L (14-63); ASPARTATE AMNIOTRANSFERASE,AST 19.0 IU/L (15-37); BILIRUBIN TOTAL 0.8 mg/dL (0.2-1.0); BLOOD UREA NITROGEN,BUN 15.0 mg/dL (7.0-18.0); CARBON DIOXIDE,CO2 23.2 mmol/L (21.0-32.0); CHLORIDE,CL 103.0 mmol/L (98-107); CREATININE 1.2 mg/dL (0.8-1.3); EST CRCL DRUG DOSING (CG) 65.42 mL/min; GLUCOSE RANDOM 126.0 mg/dL (74-106); POTASSIUM,K 3.6 mmol/L (3.5-5.1); PROTEIN TOTAL,TP 7.6 g/dL (6.4-8.2); SODIUM,NA 138.0 mmol/L (136-148)
[2025-09-18 14:15] LABS: ESTIMATED GFR 66.0 mL/min (>60)
[2025-09-18] MEDS: Iopamidol 755 MG/ML 500 ML Multipack Bottle IVPUSH STA (14:48)
[2025-09-18 16:44] VITALS: BP 130/78; PULSE 64
== END 2025-09-18 17:05 | disposition home or self-care (01) ==
LOC: MW.ED 13:37
DX: I48.91 Unspecified atrial fibrillation (principal); M19.90 Unspecified osteoarthritis, unspecified site; Z79.01 Long term (current) use of anticoagulants; Z79.899 Other long term (current) drug therapy; Z88.1 Allergy status to other antibiotic agents; Z90.49 Acquired absence of other specified parts of digestive tract
CPT/HCPCS: 36415; 70450; 71045; 71275; 74174; 80053; 82947; 83690; 84484; 85025; 93005; 96361; 96374; 96375; 99284; J1790; J2405; J7120; Q9967; 93010